=== PATIENT | male | born 1960 | race Caucasian/White ===

== ENCOUNTER 2019-01-29 11:45 | Inpatient (IN) | payer MEDICAID ==
[~2019-01-29] VITALS: Ht 175.3 cm; Wt 106.4 kg
[2019-01-29] MEDS ORDERED: PIPER-TAZO 3.375 GM IV (PMX) 100 ML IVPB STA (11:50)
[2019-01-29] MEDS ORDERED: VANCOMYCIN 1 GM (PMX) 250 ML IVPB STA (11:50)
[2019-01-29] MEDS ORDERED: SODIUM CHLORIDE 0.9% 1L BAG IV* STA (11:50)
[2019-01-29] MEDS ORDERED: ACETAMINOPHEN 325 MG TAB PO STA (11:50)
--- NOTE | 2019-01-29 12:21 | ERD ---
ER Documentation Chief Complaint Chief Complaint LEFT TOE BLACK NECROTIC HPI This is a 58-year-old male who presents for fashion of fever, this is in the setting of increased darkening of his left great toe, which now appears dark and necrotic. Patient states that he knows he has had diabetes in the past, but does not take any medications for this, states that he has not taken good care of himself. He has noted some purulent drainage underneath his great toe. He is brought in by EMS, lives with his brother. There are no alleviating or aggravating factors ROS All systems reviewed and are negative except as per history of present illness. Medications Home Meds No Active Prescriptions or Reported Meds Allergies Allergies: Coded Allergies: No Known Allergy (Unverified , 01/29/19) Physical Exam Vitals Vital Signs Date Temp Pulse Resp B/P (MAP) Pulse Ox O2 O2 Flow FiO2 Time Delivery Rate 01/29/19 100.4 12:49 01/29/19 100.4 113 20 118/68 95 11:48 (85) Physical Exam Const: No acute distress Head: Atraumatic Eyes: Normal Conjunctiva ENT: Normal External Ears, Nose and Mouth. Neck: Full range of motion. No meningismus. Resp: Clear to auscultation bilaterally Cardio: Regular rate and rhythm, no murmurs Abd: Soft, non tender, non distended. Normal bowel sounds Skin: No petechiae or rashes Back: No midline or flank tenderness Ext: No cyanosis, or edema. Over the left foot, there was about a stage II ulcer noted over the plantar aspect of his left great toe, drainage, it does not probe to bone Neur: Awake and alert Psych: Normal Mood and Affect Result Diagram: 01/29/19 1203 01/29/19 1203 Results 24 hrs Laboratory Tests Test 01/29/19 12:03 01/29/19 12:27 01/29/19 13:00 White Blood Count 12.1 10^3/ul Red Blood Count 4.86 10^6/ul Hemoglobin 14.3 g/dl Hematocrit 41.2 % Mean Corpuscular Volume 84.8 fl Mean Corpuscular Hemoglobin 29.4 pg Mean Corpuscular 34.7 g/dl Hemoglobin Concent Red Cell Distribution Width 11.5 % Platelet Count 255 10^3/UL Mean Platelet Volume 10.6 fl Immature Granulocytes % 0.700 % Neutrophils % 70.8 % Lymphocytes % 18.6 % Monocytes % 9.0 % Eosinophils % 0.7 % Basophils % 0.2 % Nucleated Red Blood Cells % 0.0 /100WBC Immature Granulocytes # 0.090 10^3/ul Neutrophils # 8.5 10^3/ul Lymphocytes # 2.2 10^3/ul Monocytes # 1.1 10^3/ul Eosinophils # 0.1 10^3/ul Basophils # 0.0 10^3/ul Nucleated Red Blood Cells # 0.0 10^3/ul Erythrocyte Sedimentation Rate 64.0 mm/Hr Prothrombin Time 12.9 Sec Prothrombin Time Ratio 1.0 INR International 0.96 Normalized Ratio Activated Partial Thromboplast 29.0 Sec Time Sodium Level 133 mmol/L Potassium Level 4.2 mmol/L Chloride Level 96 mmol/L Carbon Dioxide Level 25 mmol/L Anion Gap 12 Blood Urea Nitrogen 20 mg/dl Creatinine 0.88 mg/dl Est Glomerular Filtrat > 60 mL/min Rate mL/min Glucose Level 453 mg/dl Calcium Level 9.6 mg/dl Total Bilirubin 0.4 mg/dl Direct Bilirubin 0.00 mg/dl Indirect Bilirubin 0.4 mg/dl Aspartate Amino 18 IU/L Transf (AST/SGOT) Alanine 16 IU/L Aminotransferase (ALT/SGPT) Alkaline Phosphatase 99 IU/L Troponin I < 0.012 ng/ml C-Reactive Protein 5.7 mg/dl Total Protein 7.9 g/dl Albumin 4.0 g/dl Globulin 3.90 g/dl Albumin/Globulin Ratio 1.02 Bedside Glucose 454 mg/dL Urine Color YELLOW Urine Clarity SLIGHTLY CLOUDY Urine pH 5.0 Urine Specific [place] 1.025 Urine Ketones TRACE mg/dL Urine Nitrite NEGATIVE mg/dL Urine Bilirubin NEGATIVE mg/dL Urine Urobilinogen NEGATIVE mg/dL Urine Leukocyte Esterase NEGATIVE Teresa/ul Urine Microscopic RBC 0 /HPF Urine Microscopic WBC 1 /HPF Urine Hemoglobin NEGATIVE mg/dL Urine Glucose 3+ mg/dL Urine Total Protein NEGATIVE mg/dl Current Medications Medications Dose Sig/Nessa Start Time Status Last (Trade) Ordered Route PRN Stop Time Admin Dose Reason Admin Sodium 2,100 ml BOLUS OVER 2 01/29/19 DC 01/29/19 Chloride HOURS STAT 11:50 12:30 (NS) IV* 01/29/19 11:54 650 mg ONCE STAT 01/29/19 DC 01/29/19 Acetaminophen PO 11:50 12:49 (Tylenol 01/29/19 11:54 Tab) Vancomycin 250 ml @ ONCE STAT 01/29/19 01/29/19 HCl 125 mls/hr IVPB 11:50 12:59 01/29/19 13:49 Piperacillin 100 ml @ ONCE STAT 01/29/19 DC 01/29/19 Sod/ 200 mls/hr IVPB 11:50 12:32 Tazobactam 01/29/19 12:19 Sod Insulin 10 unit ONCE ONCE 01/29/19 Human SC 14:00 Regular 01/29/19 14:01 (Humulin R) Procedures/MDM This is a 58-year-old male who presents for relation of fever, this is setting of an ulcer to his toe. My concern the patient has sepsis, in the setting of cellulitis, with concern for possible osteomyelitis. He will be treated with broad spectrum antibiotics with vancomycin and Zosyn. His labs showed no evidence of DKA, his lactate is pending, he has no evidence of heart failure, thus he was given 30 cc/kg of IV fluids, in addition to subcu insulin at 10 units for hyperglycemia in the 400s. Patient otherwise remained hemodynamic stable. Sepsis Documentation: Patient's infectious symptoms have not stabilized and the patient is at risk of rapid decompensation. The patient will be admitted for careful hydration, antibiotic therapy, and infectious source control. SEVERE SEPSIS CRITERIA: Infectious source: Cellulitis, diabetic ulcer End organ damage indicated by: No end organ damage Time of recognition of sepsis: [Upon arrival]. Time of recognition of severe sepsis: [No severe sepsis at this time]. Time of recognition of septic shock: [No septic shock at this time]. 3 HOUR BUNDLE Blood cultures x 2 before broad-spectrum antibiotics: [Yes] 30 ml/kg NS bolus [Completed] Initial lactate pending Repeat lactate [pending Accepting Care Team: Current data and ongoing care discussed. Primary: Lion Consulting: None Outstanding Data: none CRITICAL CARE Critical care time [35] minutes Emergent fluid management while maintaining close respiratory support. Provision of immediate and broad-spectrum antibiotic therapy. Simultaneous assessment for possible sources in order to direct targeted therapy. Consideration for invasive and chemical support to prevent cardiopulmonary collapse. Critical care time is independent of procedures performed. Departure Diagnosis: Primary Impression: Injury of toe Encounter type: initial encounter Laterality: unspecified laterality Qualified Codes: S99.929A - Unspecified injury of unspecified foot, initial encounter Condition: ALVARO Gonzalez MD Jan 29, 2019 12:21
[2019-01-29] MEDS ORDERED: NACL 0.9% 3 ML SYG IV SCH (14:00)
[2019-01-29] MEDS ORDERED: VANCOMYCIN IV PER PHARMACY XX SCH (14:00)
[2019-01-29] MEDS ORDERED: INSULIN REGULAR, HUMAN 100 UNIT/1 ML 3ML VIAL SC ONE (14:00)
[2019-01-29] MEDS ORDERED: ACETAMINOPHEN 325 MG TAB PO PRN (14:00)
[2019-01-29] MEDS ORDERED: ONDANSETRON 4 MG INJ IV PRN (14:00)
--- NOTE | 2019-01-29 14:04 | HP ---
Date/Time of Note Date/Time of Note DATE: 01/29/19 TIME: 14:04 Assessment/Plan VTE Prophylaxis Pharmacological prophylaxis: other Assessment/Plan Hospital Course HPI Patient is a male with past medical history significant for diabetes of 10 years noncompliant on medications as patient has not ever seen a doctor apparently for many years who presents to [facility] for left toe pain. Patient states approximately 7 days ago he was playing soccer and he injured his toe. Pain and the bleeding got progressively worse and he came to the ER today. Patient states that he has been on and off occasional medications for his diabetes for the past 10 years but has not seen a doctor. Patient currently denies any chest pain, shortness of breath, nausea, vomiting, abdominal pain, headache, bowel or bladder dysfunction. Patient states other than his toe he feels quite normal. Objective Physical exam General: Patient is laying in bed and answers questions appropriately Mentation: Patient is alert and oriented 4, Head: Normocephalic atraumatic Eyes: EOMI, pupils reactive to light Neck: Supple, nontender, midline Respiratory: Clear to auscultation bilaterally Cardiovascular: regular rate, no obvious murmurs Gastrointestinal: non-tender to palpation, bowel sounds heard. Neurological: Moves all extremities spontaneously Skin: Left big toe black, bleeding mildly Assessment and plan Left toe fracture and necrosis -Podiatry consulted -MRI pending -X-ray noted Sepsis secondary to above left toe fracture necrosis -Broad-spectrum IV antibiotic -Infectious disease consulted -Podiatry consulted -IV fluids -Blood cultures taken Uncontrolled diabetes mellitus -Not in DKA -We will start patient on a regimen of long-acting and short-acting insulin with sliding scale as well -We will also get A1c -Fluids Degenerative spine disease -Chronic, monitor Disposition -Podiatry and infectious disease consultation pending, MRI pending. Result Diagram: 01/29/19 1203 01/29/19 1203 Results 24hrs Laboratory Tests Test 01/29/19 12:03 01/29/19 12:27 01/29/19 13:00 White Blood Count 12.1 H Red Blood Count 4.86 Hemoglobin 14.3 Hematocrit 41.2 L Mean Corpuscular Volume 84.8 Mean Corpuscular Hemoglobin 29.4 Mean Corpuscular 34.7 Hemoglobin Concent Red Cell Distribution Width 11.5 Platelet Count 255 Mean Platelet Volume 10.6 H Immature Granulocytes % 0.700 H Neutrophils % 70.8 Lymphocytes % 18.6 Monocytes % 9.0 Eosinophils % 0.7 Basophils % 0.2 Nucleated Red Blood Cells % 0.0 Immature Granulocytes # 0.090 H Neutrophils # 8.5 H Lymphocytes # 2.2 Monocytes # 1.1 H Eosinophils # 0.1 Basophils # 0.0 Nucleated Red Blood Cells # 0.0 Erythrocyte Sedimentation Rate 64.0 H Prothrombin Time 12.9 Prothrombin Time Ratio 1.0 INR International 0.96 Normalized Ratio Activated Partial Thromboplast 29.0 Time Sodium Level 133 L Potassium Level 4.2 Chloride Level 96 L Carbon Dioxide Level 25 Anion Gap 12 Blood Urea Nitrogen 20 Creatinine 0.88 Est Glomerular Filtrat > 60 Rate mL/min Glucose Level 453 *H Calcium Level 9.6 Total Bilirubin 0.4 Direct Bilirubin 0.00 Indirect Bilirubin 0.4 Aspartate Amino 18 Transf (AST/SGOT) Alanine 16 Aminotransferase (ALT/SGPT) Alkaline Phosphatase 99 Troponin I < 0.012 C-Reactive Protein 5.7 H Total Protein 7.9 Albumin 4.0 Globulin 3.90 H Albumin/Globulin Ratio 1.02 Bedside Glucose 454 *H Urine Color YELLOW Urine Clarity SLIGHTLY CLOUDY A Urine pH 5.0 Urine Specific [place] 1.025 Urine Ketones TRACE A Urine Nitrite NEGATIVE Urine Bilirubin NEGATIVE Urine Urobilinogen NEGATIVE Urine Leukocyte Esterase NEGATIVE Urine Microscopic RBC 0 Urine Microscopic WBC 1 Urine Hemoglobin NEGATIVE Urine Glucose 3+ H Urine Total Protein NEGATIVE HPI/ROS Admit Date/Time Admit Date/Time PMH/Family/Social Past Medical History Medications Current Medications IV Flush (NS 3 ml) 3 ml PER PROTOCOL IV ; Start 01/29/19 at 14:00 Ondansetron HCl (Zofran Inj) 4 mg Q6H PRN IV NAUSEA/VOMITING; Start 01/29/19 at 14:00 Acetaminophen (Tylenol Tab) 650 mg Q6H PRN PO .PAIN 1-3 OR TEMP; Start 01/29/19 at 14:00 Oxycodone/ Acetaminophen (Percocet (5/ 325)) 1 tab Q6H PRN PO .PAINS 4-6; Start 01/29/19 at 14:00 Morphine Sulfate (morphine) 2 mg Q4H PRN IV .PAIN 7-10; Start 01/29/19 at 14:00 Vancomycin HCl (Vanco Iv Per Pharmacy) VANCOMYCIN PER PHARMACY PER PROTOCOL XX ; Start 01/29/19 at 14:00; Status UNV Piperacillin Sod/ Tazobactam Sod 100 ml @ 200 mls/hr Q6 IVPB ; Start 01/29/19 at 18:00; Status UNV Sodium Chloride 1,000 ml @ 50 mls/hr Q20H IV ; Start 01/29/19 at 14:00; Status UNV Miscellaneous Information (* Miscellaneous Pharmacy Order) Discontinue current oral sulfonylur... ONCE ONCE XX ; Start 01/29/19 at 14:00; Stop 01/29/19 at 14:01; Status UNV Diagnostic Test (Pha) (Accu-Chek) 1 ea XX ; Start 01/30/19 at 02:00; Status UNV Insulin Glargine (Lantus) 25 units DAILY@2000 SC ; Start 01/29/19 at 20:00; Status UNV Insulin Aspart (Novolog Insulin Pen) 8 unit WITH MEALS SC ; Start 01/29/19 at 18:00; Status UNV Miscellaneous Information (* Miscellaneous Pharmacy Order) HYPOGLYCEMIA PROTOCOL w... ONCE ONCE XX ; Start 01/29/19 at 14:00; Stop 01/29/19 at 14:01; Status UNV Insulin Aspart (Novolog Insulin Pen) NOVOLOG *MILD* ALGORITHM WITH MEALS BEDTIME SC ; Start 01/29/19 at 18:00; Status UNV Miscellaneous Information (* Miscellaneous Pharmacy Order) Discontinue all previ... ONCE ONCE XX ; Start 01/29/19 at 14:00; Stop 01/29/19 at 14:01; Status UNV Coded Allergies: No Known Allergy (Unverified , 01/29/19) Exam/Review of Systems Vital Signs Vitals Vital Signs Date Temp Pulse Resp B/P (MAP) Pulse Ox O2 O2 Flow FiO2 Time Delivery Rate 01/29/19 100.4 12:49 01/29/19 113 20 118/68 95 11:48 (85) ALVARO MCCORD Jan 29, 2019 14:04
--- NOTE | 2019-01-29 14:20 | CONS ---
Assessment/Plan Assessment/Plan Assessment/Plan (Daily) Left hallux gangrene Left hallux minimally displaced open fracture PAD DM2 with peripheral neuropathy Uncontrolled DM2 Plan MRI and X-rays reviewed and noted comminuted distal phalanx fracture of left hallux. There is gangrenous changes noted to the skin and will allow skin to demarcate. Vascular studies ordered and recommend a vascular evaluation. Recommend daily dressing changes with dakins irrigation and betadine with dry sterile dressings. Ordered wound culture of left hallux ulcer site. Recommend IV abx per ID recommendations. Consultation Date/Type/Reason Admit Date/Time Date/Time of Note DATE: 01/29/19 TIME: 14:20 Hx of Present Illness 58 y/o male with past medical history significant for diabetes of 10 years noncompliant on medications as patient has not ever seen a doctor apparently for many years who presents to [facility] for left toe pain. Pat los states approximately 7 days ago he was playing soccer and he injured his toe. Pain and the bleeding got progressively worse and he came to the ER today. Patient states that he has been on and off occasional medications for his diabetes for the past 10 years but has not seen a doctor. Patient currently denies any chest pain, shortness of breath, nausea, vomiting, abdominal pain, headache, bowel or bladder dysfunction. Patient states other than his toe he feels quite normal. ROS negative except for HPI Past Medical History Degenerative spine disease Medical History: diabetes Home Meds No Active Prescriptions or Reported Meds Medications Current Medications IV Flush (NS 3 ml) 3 ml PER PROTOCOL IV ; Start 01/29/19 at 14:00 Ondansetron HCl (Zofran Inj) 4 mg Q6H PRN IV NAUSEA/VOMITING; Start 01/29/19 at 14:00 Acetaminophen (Tylenol Tab) 650 mg Q6H PRN PO .PAIN 1-3 OR TEMP; Start 01/29/19 at 14:00 Oxycodone/ Acetaminophen (Percocet (5/ 325)) 1 tab Q6H PRN PO .PAINS 4-6; Start 01/29/19 at 14:00 Morphine Sulfate (morphine) 2 mg Q4H PRN IV .PAIN 7-10; Start 01/29/19 at 14:00 Vancomycin HCl (Vanco Iv Per Pharmacy) VANCOMYCIN PER PHARMACY PER PROTOCOL XX ; Start 01/29/19 at 14:00; Status UNV Piperacillin Sod/ Tazobactam Sod 100 ml @ 200 mls/hr Q6 IVPB ; Start 01/29/19 at 18:00; Status UNV Sodium Chloride 1,000 ml @ 50 mls/hr Q20H IV ; Start 01/29/19 at 14:00; Status UNV Miscellaneous Information (* Miscellaneous Pharmacy Order) Discontinue current oral sulfonylur... ONCE ONCE XX ; Start 01/29/19 at 14:00; Stop 01/29/19 at 14:01; Status UNV Diagnostic Test (Pha) (Accu-Chek) 1 ea XX ; Start 01/30/19 at 02:00; Status UNV Insulin Glargine (Lantus) 25 units DAILY@2000 SC ; Start 01/29/19 at 20:00; Status UNV Insulin Aspart (Novolog Insulin Pen) 8 unit WITH MEALS SC ; Start 01/29/19 at 18:00; Status UNV Miscellaneous Information (* Miscellaneous Pharmacy Order) HYPOGLYCEMIA PROTOCOL w... ONCE ONCE XX ; Start 01/29/19 at 14:00; Stop 01/29/19 at 14:01; Status UNV Insulin Aspart (Novolog Insulin Pen) NOVOLOG *MILD* ALGORITHM WITH MEALS BEDTIME SC ; Start 01/29/19 at 18:00; Status UNV Miscellaneous Information (* Miscellaneous Pharmacy Order) Discontinue all previ... ONCE ONCE XX ; Start 01/29/19 at 14:00; Stop 01/29/19 at 14:01; Status UNV Allergies: Coded Allergies: No Known Allergy (Unverified , 01/29/19) Past Surgical History denies Social History Smoking Status: Never smoker Exam/Review of Systems Exam Vitals Vital Signs Date Temp Pulse Resp B/P (MAP) Pulse Ox O2 O2 Flow FiO2 Time Delivery Rate 01/29/19 100.4 12:49 01/29/19 113 20 118/68 95 11:48 (85) Exam Weakly palpable pedal pulses Absent protective sensations. Gangrene noted to the left hallux There is mild purulent drainage noted with the left hallux ulceration site measuring 0.3 x 0.4 x 0.3cm, ulcer probes to bone Muscle strength 5/5 in all compartments of the foot Mild pain with palpation to the left hallux. Foot X-ray IMPRESSION: 1. Comminuted nondisplaced fracture involving the distal aspect of the distal phalanx of the left great toe without significant displacement. 2. Deformity to the distal left second metatarsal neck and head which may be a sequelae of old healed trauma. 3. Mild calcaneal spurring. 4. Soft tissue swelling involving the distal left great toe. Vascular calcification is noted. Foot MRI IMPRESSION: 1. Slightly comminuted essentially nondisplaced first distal tuft fracture with adjacent soft tissue swelling and possible skin defect. Questionable subtle ezekiel ical irregularity along the fracture margins may be related to the fracture though if there is a skin defect clinically early osteomyelitis is not entirely excluded. Continued clinical follow-up is advised and consider short-term follow-up MRI for further evaluation. 2. 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 3. No discrete drainable fluid collection. Results Result Diagram: 01/29/19 1203 01/29/19 1203 Results 24hrs Laboratory Tests Test 01/29/19 12:03 01/29/19 12:27 01/29/19 13:00 White Blood Count 12.1 H Red Blood Count 4.86 Hemoglobin 14.3 Hematocrit 41.2 L Mean Corpuscular Volume 84.8 Mean Corpuscular Hemoglobin 29.4 Mean Corpuscular 34.7 Hemoglobin Concent Red Cell Distribution Width 11.5 Platelet Count 255 Mean Platelet Volume 10.6 H Immature Granulocytes % 0.700 H Neutrophils % 70.8 Lymphocytes % 18.6 Monocytes % 9.0 Eosinophils % 0.7 Basophils % 0.2 Nucleated Red Blood Cells % 0.0 Immature Granulocytes # 0.090 H Neutrophils # 8.5 H Lymphocytes # 2.2 Monocytes # 1.1 H Eosinophils # 0.1 Basophils # 0.0 Nucleated Red Blood Cells # 0.0 Erythrocyte Sedimentation Rate 64.0 H Prothrombin Time 12.9 Prothrombin Time Ratio 1.0 INR International 0.96 Normalized Ratio Activated Partial Thromboplast 29.0 Time Sodium Level 133 L Potassium Level 4.2 Chloride Level 96 L Carbon Dioxide Level 25 Anion Gap 12 Blood Urea Nitrogen 20 Creatinine 0.88 Est Glomerular Filtrat > 60 Rate mL/min Glucose Level 453 *H Calcium Level 9.6 Total Bilirubin 0.4 Direct Bilirubin 0.00 Indirect Bilirubin 0.4 Aspartate Amino 18 Transf (AST/SGOT) Alanine 16 Aminotransferase (ALT/SGPT) Alkaline Phosphatase 99 Troponin I < 0.012 C-Reactive Protein 5.7 H Total Protein 7.9 Albumin 4.0 Globulin 3.90 H Albumin/Globulin Ratio 1.02 Bedside Glucose 454 *H Urine Color YELLOW Urine Clarity SLIGHTLY CLOUDY A Urine pH 5.0 Urine Specific [place] 1.025 Urine Ketones TRACE A Urine Nitrite NEGATIVE Urine Bilirubin NEGATIVE Urine Urobilinogen NEGATIVE Urine Leukocyte Esterase NEGATIVE Urine Microscopic RBC 0 Urine Microscopic WBC 1 Urine Hemoglobin NEGATIVE Urine Glucose 3+ H Urine Total Protein NEGATIVE Medications Medication Current Medications IV Flush (NS 3 ml) 3 ml PER PROTOCOL IV ; Start 01/29/19 at 14:00 Ondansetron HCl (Zofran Inj) 4 mg Q6H PRN IV NAUSEA/VOMITING; Start 01/29/19 at 14:00 Acetaminophen (Tylenol Tab) 650 mg Q6H PRN PO .PAIN 1-3 OR TEMP; Start 01/29/19 at 14:00 Oxycodone/ Acetaminophen (Percocet (5/ 325)) 1 tab Q6H PRN PO .PAINS 4-6; Start 01/29/19 at 14:00 Morphine Sulfate (morphine) 2 mg Q4H PRN IV .PAIN 7-10; Start 01/29/19 at 14:00 Vancomycin HCl (Vanco Iv Per Pharmacy) VANCOMYCIN PER PHARMACY PER PROTOCOL XX ; Start 01/29/19 at 14:00; Status UNV Piperacillin Sod/ Tazobactam Sod 100 ml @ 200 mls/hr Q6 IVPB ; Start 01/29/19 at 18:00; Status UNV Sodium Chloride 1,000 ml @ 50 mls/hr Q20H IV ; Start 01/29/19 at 14:00; Status UNV Miscellaneous Information (* Miscellaneous Pharmacy Order) Discontinue current oral sulfonylur... ONCE ONCE XX ; Start 01/29/19 at 14:00; Stop 01/29/19 at 14:01; Status UNV Diagnostic Test (Pha) (Accu-Chek) 1 XX ; Start 01/30/19 at 02:00; Status UNV Insulin Glargine (Lantus) 25 units DAILY@2000 SC ; Start 01/29/19 at 20:00; Status UNV Insulin Aspart (Novolog Insulin Pen) 8 unit WITH MEALS SC ; Start 01/29/19 at 18:00; Status UNV Miscellaneous Information (* Miscellaneous Pharmacy Order) HYPOGLYCEMIA PROTOCOL w... ONCE ONCE XX ; Start 01/29/19 at 14:00; Stop 01/29/19 at 14:01; Status UNV Insulin Aspart (Novolog Insulin Pen) NOVOLOG *MILD* ALGORITHM WITH MEALS BEDTIM E SC ; Start 01/29/19 at 18:00; Status UNV Miscellaneous Information (* Miscellaneous Pharmacy Order) Discontinue all previ... ONCE ONCE XX ; Start 01/29/19 at 14:00; Stop 01/29/19 at 14:01; Status UNV BRENTON OBANDO DPM Jan 29, 2019 14:20
[2019-01-29] MEDS ORDERED: GLUCOSE GEL 15 GRAM TUBE PO PRN ×2 (15:00)
[2019-01-29] MEDS ORDERED: VANCOMYCIN 1 GM in 250 ML IVPB ONE (15:00)
[2019-01-29] MEDS ORDERED: GLUCAGON 1 MG INJ IM PRN (15:00)
[2019-01-29] MEDS ORDERED: GLUCOSE GEL 15 GRAM TUBE BUCCAL PRN (15:00)
[2019-01-29] MEDS ORDERED: DEXTROSE 50% 50 ML SYRINGE IV PRN ×2 (15:00)
[2019-01-29 16:32] VITALS: BP 116/79; PULSE 92; RESP 19
[2019-01-29 16:33] VITALS: Ht 175.3 cm; Wt 106.4 kg
--- NOTE | 2019-01-29 17:49 | CONS ---
DATE OF ADMISSION: 01/29/2019 DATE OF CONSULTATION: 01/29/2019 REASON FOR CONSULTATION: Antibiotic management. HISTORY OF PRESENT ILLNESS: Uli Soliz is a 58-year-old male who comes to the emergen cy room with left toe necrosis. The patient comes in with fever. He has darkening of his left great toe which appears black and necrotic. He has diabetes and has known it in the past but does not marlee e any medications for it. He states he is not taking good care of himself. He noted some purulent d rainage underneath the great toe. PAST MEDICAL HISTORY: Operations: None. FAMILY HISTORY: Noncontributory. SOCIAL HISTORY: He does not smoke, drink or abuse drugs. ALLERGIES: NONE TO PENICILLIN, SULFA OR FOODS. MEDICATIONS: Per chart. REVIEW OF SYSTEMS: As per HPI. PHYSICAL EXAMINATION: GENERAL: The patient is alert, responsive, in no acute distress. VITAL SIGNS: T-max of 100.4. SKIN: Without generalized rash. HEENT: Within normal limits. NECK: Supple. LYMPH NODES: None palpable. CHEST: Decreased breath sounds at the bases. HEART: Without murmur or gallop. ABDOMEN: Soft, nontender, without organosplenomegaly or masses. EXTREMITIES: There is a stage II ulcer over the left foot noted on the plantar aspect of the left gr eat toe. There is drainage but it does not probe to bone. RECTAL AND GENITAL: Exam is deferred. NEUROLOGIC EVALUATION: No focal neurological abnormality. He has decreased sensation in the distal extremities. ANCILLARY LABORATORY DATA: White count of 12.1, H and H of 14.3/41.2, platelet count 255,000. BUN a nd creatinine 20/0.88, random glucose 453. HOSPITAL COURSE: The patient was started on vancomycin and Zosyn for cellulitis, diabetic foot ulcer . Blood cultures x2 were done. Sed rate was 64. BUN and creatinine were 20/0.88 with a glucose of 453 and 454. X-ray of the foot shows a comminuted, nondisplaced fracture involving the distal phalan x of the left great toe without significant displacement; deformity to the distal left 2nd metatarsal neck and head which may be a sequela of old healed trauma; mild calcaneus spurring; soft tissue swel ling involving the distal left great toe. Vascular calcification is noted. IMPRESSION AND PLAN: The patient comes in with a black necrotic toe. He should be seen by Podiatry. An MRI is pending to rule out osteomyelitis. We will continue him on broad-spectrum antibiotic the rapy. I will dictate my findings to the hospitalist. Dictated By: ADRIAN XIE MD, JD/LIBERTY Conf#: [id number] DID#: [id number] CC: ALVARO MCCORD MD;*EndCC*
[2019-01-29] MEDS: INSULIN ASPART [NOVOLOG] 3 ML PEN SC SCH ×3 (18:00→20:18)
[2019-01-29] MEDS: PIPER-TAZO 3.375 GM IV (PMX) 100 ML IVPB SCH ×2 (18:04→23:31)
[2019-01-29] MEDS: SOD CHLORIDE 0.9% 1,000 ML IV SCH (18:05)
[2019-01-29 20:00] VITALS: BP 137/77; PULSE 93; RESP 18
[2019-01-29] MEDS ORDERED: INSULIN GLARGINE [LANTus] (100 UNITS/ML) SYG SC SCH (20:00)
[2019-01-30] MEDS: ACCU-CHEK XX SCH (01:36)
[2019-01-30 02:00] VITALS: BP 131/76; PULSE 80; RESP 18
[2019-01-30] MEDS: PIPER-TAZO 3.375 GM IV (PMX) 100 ML IVPB SCH ×3 (05:20→18:32)
[2019-01-30 08:30] VITALS: BP 113/57; PULSE 84; RESP 18
[2019-01-30] MEDS: INSULIN ASPART [NOVOLOG] 3 ML PEN SC SCH ×7 (08:50→20:46)
[2019-01-30] MEDS: OXYCODONE/ACETAMINOPHEN (5/325) TAB PO PRN ×2 (08:57→20:20)
[2019-01-30] MEDS: SOD CHLORIDE 0.9% 1,000 ML IV SCH ×2 (10:00→22:59)
[2019-01-30] MEDS ORDERED: VANCOMYCIN HCL 1.5 GM in SOD CHLORIDE 0.9% 250 ML IVPB SCH (12:00)
--- NOTE | 2019-01-30 14:17 | PN ---
Date/Time of Note Date/Time of Note DATE: 01/30/19 TIME: 14:16 Objective Vitals Vital Signs Date Temp Pulse Resp B/P (MAP) Pulse Ox O2 O2 Flow FiO2 Time Delivery Rate 01/30/19 98.6 84 18 113/57 100 Room Air 08:30 (75) Intake and Output 01/29/19 01/29/19 01/30/19 1515:00 23:00 07:00 IntakeIntake Total 895 ml 1200 ml OutputOutput Total 1000 ml 800 ml BalanceBalance -105 ml 400 ml Results Result Diagram: 01/30/19 0555 01/30/19 0555 Medications Medications Current Medications IV Flush (NS 3 ml) 3 ml PER PROTOCOL IV ; Start 01/29/19 at 14:00 Ondansetron HCl (Zofran Inj) 4 mg Q6H PRN IV NAUSEA/VOMITING; Start 01/29/19 at 14:00 Acetaminophen (Tylenol Tab) 650 mg Q6H PRN PO .PAIN 1-3 OR TEMP; Start 01/29/19 at 14:00 Oxycodone/ Acetaminophen (Percocet (5/ 325)) 1 tab Q6H PRN PO .PAINS 4-6 Last administered on 01/30/19at 08:57; Admin Dose 1 TAB; Start 01/29/19 at 14:00 Morphine Sulfate (morphine) 2 mg Q4H PRN IV .PAIN 7-10; Start 01/29/19 at 14:00 Vancomycin HCl (Vanco Iv Per Pharmacy) VANCOMYCIN PER PHARMACY PER PROTOCOL XX ; Start 01/29/19 at 14:00 Piperacillin Sod/ Tazobactam Sod 100 ml @ 200 mls/hr Q6 IVPB Last administered on 01/30/19at 13:23; Admin Dose 200 MLS/HR; Start 01/29/19 at 18:00 Sodium Chloride 1,000 ml @ 50 mls/hr Q20H IV Last administered on 01/29/19at 18:05; Admin Dose 50 MLS/HR; Start 01/29/19 at 14:00 Diagnostic Test (Pha) (Accu-Chek) 1 ea 02 XX ; Start 01/30/19 at 02:00 Insulin Aspart (Novolog Insulin Pen) NOVOLOG *MILD* ALGORITHM WITH MEALS BEDTIME SC Last administered on 01/30/19at 12:34; Admin Dose 4 UNIT; Start 01/29/19 at 18:00 Miscellaneous Information 1 ea NOTE XX ; Start 01/29/19 at 15:00 Glucose (Glutose) 15 gm Q15M PRN PO DECREASED GLUCOSE; Start 01/29/19 at 15:00 Glucose (Glutose) 22.5 gm Q15M PRN PO DECREASED GLUCOSE; Start 01/29/19 at 15:00 Dextrose (D50w Syringe) 25 ml Q15M PRN IV DECREASED GLUCOSE; Start 01/29/19 at 15:00 Dextrose (D50w Syringe) 50 ml Q15M PRN IV DECREASED GLUCOSE; Start 01/29/19 at 15:00 Glucagon (Glucagen) 1 mg Q15M PRN IM DECREASED GLUCOSE; Start 01/29/19 at 15:00 Glucose (Glutose) 15 gm Q15M PRN BUCCAL DECREASED GLUCOSE; Start 01/29/19 at 15:00 Miscellaneous Information (*Rx Drug Level Order Reminder*) VANCO TROUGH ON 01/18... 1200 ONCE XX ; Start 01/31/19 at 12:00; Stop 01/31/19 at 12:01 Vancomycin HCl 1.5 gm/Sodium Chloride 250 ml @ 83.333 mls/ hr Q12H IVPB ; Start 01/30/19 at 13:00 Insulin Aspart (Novolog Insulin Pen) 11 unit WITH MEALS SC ; Start 01/30/19 at 17:35 Insulin Glargine (Lantus) 30 units DAILY@2000 SC ; Start 01/30/19 at 20:00 VTE Prophylaxis Risk score (from Nsg)>0 risk: 3 SCD applied (from Ns): Yes Lines/Catheters IV Catheter Type: Barnett in Place: No Assessment/Plan Hospital Course Subjective Patient doing well, no acute complaints Objective Physical exam General: Patient is laying in bed and answers questions appropriately Mentation: Patient is alert and oriented 4, Head: Normocephalic atraumatic Eyes: EOMI, pupils reactive to light Neck: Supple, nontender, midline Respiratory: Clear to auscultation bilaterally Cardiovascular: regular rate, no obvious murmurs Gastrointestinal: non-tender to palpation, bowel sounds heard. Neurological: Moves all extremities spontaneously Skin: Left big toe black, bleeding mildly Assessment and plan Left toe fracture and necrosis, cannot rule out osteomyelitis -Podiatry consulted -MRI notes multiple issues, cannot rule out osteomyelitis -X-ray noted Sepsis secondary to above left toe fracture necrosis -Broad-spectrum IV antibiotic -Infectious disease consulted -Podiatry consulted -IV fluids -Blood cultures taken Uncontrolled diabetes mellitus -We will have to adjust Lantus and mealtime and sliding scale, educator senior clinical will also need to be called as patient was never really on medications, patient will likely lead with a combination of oral and insulins Degenerative spine disease -Chronic, monitor Disposition -Podiatry and infectious disease consultation pending, ALVARO MCCORD Jan 30, 2019 14:17
[2019-01-30 14:31] VITALS: BP 116/60; PULSE 80; RESP 18
[2019-01-30] MEDS: VANCOMYCIN HCL 1.5 GM in SOD CHLORIDE 0.9% 250 ML IVPB SCH (14:57)
--- NOTE | 2019-01-30 16:31 | CONS ---
Assessment/Plan Assessment/Plan Hospital Course (Demo Recall) ID PROGRESS NOTE CURRENT ABX: DAY #1.5 => Vanco IV + Zosyn 24H INTERVAL SUMMARY * Improved, TNS out of ICU, afebrile, VSS, foot pain ongoing DIAGNOSTIC IMAGING * 01/29/19 MRI FOOT: * 1. Slightly comminuted essentially nondisplaced first distal tuft fracture with adjacent soft tissue swelling and possible skin defect. Questionable subtle cortical irregularity along the fracture margins may be related to the fracture though if there is a skin defect clinically early osteomyelitis is not entirely excluded. Continued clinical follow-up is advised and consider short-term follow-up MRI for further evaluation. * 2. 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 * 3. No discrete drainable fluid collection. MICRO/OTHER * 01/29/19 (-)MRSA Nares * 01/29/19 Urine Cx (-) * 01/29/19 BCx (-) PHYSICAL EXAMINATION: GENERAL: VSS, NAD HEENT: AT, NC, anicteric, NECK: Supple, CHEST: Equal chest rise bilaterally, without dyspnea on observation HEART: Pulse RRR ABDOMEN: Soft / NT EXTREMITIES: Warm, dry SKIN: No rash, no diaphoresis ID ASSESSMENT 58 yo M admit with: 1. Left toe fracture and necrosis, cannot rule out osteomyelitis * -MRI notes multiple issues, cannot rule out osteomyelitis 2. Sepsis secondary to above left toe fracture necrosis 3. Uncontrolled diabetes mellitus 4. Degenerative spine disease ABX ALLERGIES: KNDA INVASIVES: PI CURRENT ABX: DAY #1.5 => Vanco IV + Zosyn ID RECOMMENDATIONS/PLAN: 1. Continue current ABC 2. Will follow up tomorrow . Consultation Date/Type/Reason Admit Date/Time Jan 29, 2019 at 14:15 Initial Consult Date Date/Time of Note DATE: 01/30/19 TIME: 16:29 Exam/Review of Systems Exam Vitals Vital Signs Date Temp Pulse Resp B/P (MAP) Pulse Ox O2 O2 Flow FiO2 Time Delivery Rate 01/30/19 98.2 80 18 116/60 100 Room Air 14:31 (78) Intake and Output 01/29/19 01/29/19 01/30/19 1515:00 23:00 07:00 IntakeIntake Total 895 ml 1200 ml OutputOutput Total 1000 ml 800 ml BalanceBalance -105 ml 400 ml Results Result Diagram: 01/30/19 0555 01/30/19 0555 Results 24hrs Laboratory Tests Test 01/29/19 17:04 01/29/19 20:13 01/30/19 01:35 01/30/19 05:55 Bedside Glucose 280 H 224 H 222 H White Blood Count 8.3 # Red Blood Count 4.50 L Hemoglobin 13.2 L Hematocrit 38.7 L Mean Corpuscular 86.0 Volume Mean Corpuscular 29.3 Hemoglobin Mean Corpuscular 34.1 Hemoglobin Concent Red Cell 11.7 Distribution Width Platelet Count 225 Mean Platelet Volume 10.3 Immature 0.800 H Granulocytes % Neutrophils % 66.1 Lymphocytes % 20.3 Monocytes % 10.0 Eosinophils % 2.6 Basophils % 0.2 Nucleated Red Blood 0.0 Cells % Immature 0.070 H Granulocytes # Neutrophils # 5.5 Lymphocytes # 1.7 Monocytes # 0.8 Eosinophils # 0.2 Basophils # 0.0 Nucleated Red Blood 0.0 Cells # Sodium Level 138 Potassium Level 4.0 Chloride Level 101 Carbon Dioxide Level 28 Anion Gap 9 Blood Urea Nitrogen 14 Creatinine 0.52 L Est Glomerular > 60 Filtrat Rate mL/min Glucose Level 235 #H Hemoglobin A1c 11.9 H Calcium Level 8.8 Magnesium Level 1.9 Total Bilirubin 0.3 Direct Bilirubin 0.00 Indirect Bilirubin 0.3 Aspartate Amino 17 Transf (AST/SGOT) Alanine 24 Aminotransferase (AL T/SGPT) Alkaline Phosphatase 74 Total Protein 6.8 # Albumin 3.4 Globulin 3.40 H Albumin/Globulin 1.00 Ratio Triglycerides Level 131 Cholesterol Level 174 LDL Cholesterol, 121 Calculated HDL Cholesterol 27 L Cholesterol/HDL 6.4 Ratio Thyroid Stimulating 1.210 Hormone (TSH) Test 01/30/19 08:16 01/30/19 12:14 Bedside Glucose 281 H 266 H Medications Medication Current Medications IV Flush (NS 3 ml) 3 ml PER PROTOCOL IV ; Start 01/29/19 at 14:00 Ondansetron HCl (Zofran Inj) 4 mg Q6H PRN IV NAUSEA/VOMITING; Start 01/29/19 at 14:00 Acetaminophen (Tylenol Tab) 650 mg Q6H PRN PO .PAIN 1-3 OR TEMP; Start 01/29/19 at 14:00 Oxycodone/ Acetaminophen (Percocet (5/ 325)) 1 tab Q6H PRN PO .PAINS 4-6 Last administered on 01/30/19at 08:57; Admin Dose 1 TAB; Start 01/29/19 at 14:00 Morphine Sulfate (morphine) 2 mg Q4H PRN IV .PAIN 7-10; Start 01/29/19 at 14:00 Vancomycin HCl (Vanco Iv Per Pharmacy) VANCOMYCIN PER PHARMACY PER PROTOCOL XX ; Start 01/29/19 at 14:00 Piperacillin Sod/ Tazobactam Sod 100 ml @ 200 mls/hr Q6 IVPB Last administered on 01/30/19at 13:23; Admin Dose 200 MLS/HR; Start 01/29/19 at 18:00 Sodium Chloride 1,000 ml @ 50 mls/hr Q20H IV Last administered on 01/29/19at 18:05; Admin Dose 50 MLS/HR; Start 01/29/19 at 14:00 Diagnostic Test (Pha) (Accu-Chek) 1 ea 02 XX ; Start 01/30/19 at 02:00 Insulin Aspart (Novolog Insulin Pen) NOVOLOG *MILD* ALGORITHM WITH MEALS BEDTIME SC Last administered on 01/30/19at 12:34; Admin Dose 4 UNIT; Start 01/29/19 at 18:00 Miscellaneous Information 1 ea NOTE XX ; Start 01/29/19 at 15:00 Glucose (Glutose) 15 gm Q15M PRN PO DECREASED GLUCOSE; Start 01/29/19 at 15:00 Glucose (Glutose) 22.5 gm Q15M PRN PO DECREASED GLUCOSE; Start 01/29/19 at 15:00 Dextrose (D50w Syringe) 25 ml Q15M PRN IV DECREASED GLUCOSE; Start 01/29/19 at 15:00 Dextrose (D50w Syringe) 50 ml Q15M PRN IV DECREASED GLUCOSE; Start 01/29/19 at 15:00 Glucagon (Glucagen) 1 mg Q15M PRN IM DECREASED GLUCOSE; Start 01/29/19 at 15:00 Glucose (Glutose) 15 gm Q15M PRN BUCCAL DECREASED GLUCOSE; Start 01/29/19 at 15:00 Miscellaneous Information (*Rx Drug Level Order Reminder*) VANCO TROUGH ON 01/18... 1200 ONCE XX ; Start 01/31/19 at 12:00; Stop 01/31/19 at 12:01 Vancomycin HCl 1.5 gm/Sodium Chloride 250 ml @ 83.333 mls/ hr Q12H IVPB Last administered on 01/30/19at 14:57; Admin Dose 83.333 MLS/HR; Start 01/30/19 at 13:00 Insulin Aspart (Novolog Insulin Pen) 11 unit WITH MEALS SC ; Start 01/30/19 at 17:35 Insulin Glargine (Lantus) 30 units DAILY@2000 SC ; Start 01/30/19 at 20:00 RUIZ WALLACE NP Jan 30, 2019 16:30
[2019-01-30 20:00] VITALS: BP 136/63; PULSE 93; RESP 18
[2019-01-30] MEDS ORDERED: INSULIN GLARGINE [LANTus] (100 UNITS/ML) SYG SC SCH (20:00)
[2019-01-31] MEDS: PIPER-TAZO 3.375 GM IV (PMX) 100 ML IVPB SCH ×4 (00:41→17:18)
[2019-01-31] MEDS: VANCOMYCIN HCL 1.5 GM in SOD CHLORIDE 0.9% 250 ML IVPB SCH ×2 (01:10→13:36)
[2019-01-31 02:00] VITALS: BP 119/68; PULSE 78; RESP 18
[2019-01-31] MEDS: OXYCODONE/ACETAMINOPHEN (5/325) TAB PO PRN ×4 (02:05→18:44)
[2019-01-31] MEDS: ACCU-CHEK XX SCH (02:12)
[2019-01-31 08:12] VITALS: BP 131/70; PULSE 84; RESP 17
[2019-01-31] MEDS: INSULIN ASPART [NOVOLOG] 3 ML PEN SC SCH ×7 (08:20→20:50)
[2019-01-31] MEDS: DAKINS 0.0125%(1/40) 473 ML SOLUTION TP SCH (09:00)
[2019-01-31 13:57] VITALS: BP 98/52; PULSE 82; RESP 17
--- NOTE | 2019-01-31 15:06 | PN ---
Date/Time of Note Date/Time of Note DATE: 01/31/19 TIME: 15:05 Objective Vitals Vital Signs Date Temp Pulse Resp B/P (MAP) Pulse Ox O2 O2 Flow FiO2 Time Delivery Rate 01/31/19 99.5 82 17 98/52 (67) 94 Room Air 13:57 Intake and Output 01/30/19 01/30/19 01/31/19 1515:00 23:00 07:00 IntakeIntake Total 1120 ml 750 ml 950 ml OutputOutput Total 2000 ml 400 ml 1200 ml BalanceBalance -880 ml 350 ml -250 ml Results Result Diagram: 01/31/19 0550 01/31/19 1204 Medications Medications Current Medications IV Flush (NS 3 ml) 3 ml PER PROTOCOL IV ; Start 01/29/19 at 14:00 Ondansetron HCl (Zofran Inj) 4 mg Q6H PRN IV NAUSEA/VOMITING; Start 01/29/19 at 14:00 Acetaminophen (Tylenol Tab) 650 mg Q6H PRN PO .PAIN 1-3 OR TEMP; Start 01/29/19 at 14:00 Oxycodone/ Acetaminophen (Percocet (5/ 325)) 1 tab Q6H PRN PO .PAINS 4-6 Last administered on 01/31/19at 11:58; Admin Dose 1 TAB; Start 01/29/19 at 14:00 Morphine Sulfate (morphine) 2 mg Q4H PRN IV .PAIN 7-10; Start 01/29/19 at 14:00 Vancomycin HCl (Vanco Iv Per Pharmacy) VANCOMYCIN PER PHARMACY PER PROTOCOL XX ; Start 01/29/19 at 14:00 Piperacillin Sod/ Tazobactam Sod 100 ml @ 200 mls/hr Q6 IVPB Last administered on 01/31/19at 11:55; Admin Dose 200 MLS/HR; Start 01/29/19 at 18:00 Sodium Chloride 1,000 ml @ 50 mls/hr Q20H IV Last administered on 01/30/19at 22 :59; Admin Dose 50 MLS/HR; Start 01/29/19 at 14:00 Diagnostic Test (Pha) (Accu-Chek) 1 ea 02 XX Last administered on 01/31/19at 02:12; Admin Dose 1 EA; Start 01/30/19 at 02:00 Insulin Aspart (Novolog Insulin Pen) NOVOLOG *MILD* ALGORITHM WITH MEALS BEDTIME SC Last administered on 01/31/19at 12:05; Admin Dose 3 UNIT; Start 01/29/19 at 18:00 Miscellaneous Information 1 ea NOTE XX ; Start 01/29/19 at 15:00 Glucose (Glutose) 15 gm Q15M PRN PO DECREASED GLUCOSE; Start 01/29/19 at 15:00 Glucose (Glutose) 22.5 gm Q15M PRN PO DECREASED GLUCOSE; Start 01/29/19 at 15:00 Dextrose (D50w Syringe) 25 ml Q15M PRN IV DECREASED GLUCOSE; Start 01/29/19 at 15:00 Dextrose (D50w Syringe) 50 ml Q15M PRN IV DECREASED GLUCOSE; Start 01/29/19 at 15:00 Glucagon (Glucagen) 1 mg Q15M PRN IM DECREASED GLUCOSE; Start 01/29/19 at 15:00 Glucose (Glutose) 15 gm Q15M PRN BUCCAL DECREASED GLUCOSE; Start 01/29/19 at 15:00 Vancomycin HCl 1.5 gm/Sodium Chloride 250 ml @ 83.333 mls/ hr Q12H IVPB Last administered on 01/31/19at 13:36; Admin Dose 83.333 MLS/HR; Start 01/30/19 at 13:00; Stop 01/31/19 at 17:00 Sodium Hypochlorite (Dakins Diluted (1/40)) 1 applic DAILY TP ; Start 01/31/19 at 09:00 Insulin Aspart (Novolog Insulin Pen) 13 unit WITH MEALS SC Last administered on 01/31/19at 12:04; Admin Dose 13 UNIT; Start 01/31/19 at 11:30 Insulin Glargine (Lantus) 35 units DAILY@2000 SC ; Start 01/31/19 at 20:00 Miscellaneous Information (*Rx Drug Level Order Reminder*) VANCO TROUGH ON @ 300 1300 ONCE XX ; Start 02/01/19 at 13:00; Stop 02/01/19 at 13:01 Vancomycin HCl 1.25 gm/Sodium Chloride 250 ml @ 83.333 mls/ hr Q8H IVPB ; Start 01/31/19 at 22:00 VTE Prophylaxis Risk score (from Nsg)>0 risk: 3 SCD applied (from Nsg): Yes Lines/Catheters IV Catheter Type: Barnett in Place: No Assessment/Plan Hospital Course Subjective Patient doing well, no acute complaints Objective Physical exam General: Patient is laying in bed and answers questions appropriately Mentation: Patient is alert and oriented 4, Head: Normocephalic atraumatic Eyes: EOMI, pupils reactive to light Neck: Supple, nontender, midline Respiratory: Clear to auscultation bilaterally Cardiovascular: regular rate, no obvious murmurs Gastrointestinal: non-tender to palpation, bowel sounds heard. Neurological: Moves all extremities spontaneously Skin: Left big toe black, bleeding mildly Assessment and plan Left toe fracture and necrosis, cannot rule out osteomyelitis -Podiatry consulted -MRI notes multiple issues, cannot rule out osteomyelitis -X-ray noted -significant stenosis found on LE arterial study, will speak to podiatry for possible vascular consult. Sepsis secondary to above left toe fracture necrosis -Broad-spectrum IV antibiotic -Infectious disease consulted -Podiatry consulted -IV fluids -Blood cultures taken Uncontrolled diabetes mellitus -We will have to adjust Lantus and mealtime and sliding scale, conservation educator will also need to be called as patient was never really on medications, patient will likely lead with a combination of oral and insulins Degenerative spine disease -Chronic, monitor Disposition -Podiatry and infectious disease recs pending, ALVARO MCCORD Jan 31, 2019 15:06
--- NOTE | 2019-01-31 16:03 | CONS ---
Assessment/Plan Assessment/Plan Hospital Course (Demo Recall) ID PROGRESS NOTE CURRENT ABX: DAY #2.5 => Vanco IV + Zosyn 01/31/19 0550 01/31/19 1204 24H INTERVAL SUMMARY * Awake, alert, responsive, VSS, no fevers, coping well with pain, no complaints * BLEXT stenosis on duplex scan today DIAGNOSTIC IMAGING * 01/31/19 ARTERIAL DUPLEX BLEXT: IMPRESSION: * Monophasic wave form in the right dorsalis pedis artery consistent with a significant stenosis. * Monophasic wave form in the left posterior tibial and dorsalis pedis arteries consistent with a significant infrapopliteal stenosis. * 01/29/19 MRI FOOT: * 1. Slightly comminuted essentially nondisplaced first distal tuft fracture with adjacent soft tissue swelling and possible skin defect. Questionable subtle cortical irregularity along the fracture margins may be related to the fracture though if there is a skin defect clinically early osteo myelitis is not entirely excluded. Continued clinical follow-up is advised and consider short-term follow-up MRI for further evaluation. * 2. 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 * 3. No discrete drainable fluid collection. MICRO/OTHER * 01/29/19 (-)MRSA Nares * 01/29/19 Urine Cx (-) * 01/29/19 BCx (-) PHYSICAL EXAMINATION: GENERAL: VSS, NAD HEENT: AT, NC, anicteric, NECK: Supple, CHEST: Equal chest rise bilaterally, without dyspnea on observation HEART: Pulse RRR ABDOMEN: Soft / NT EXTREMITIES: Warm, dry / Foot DSG C/D/I SKIN: No rash, no diaphoresis ID ASSESSMENT 58 yo M admit with: 1. Left toe fracture and necrosis, cannot rule out osteomyelitis * MRI notes multiple issues, cannot rule out osteomyelitis 2. Sepsis secondary to above left toe fracture necrosis 3. 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 Severe PAD BLEXT * 01/31/19 ARTERIAL DUPLEX BLEXT: IMPRESSION: * Monophasic wave form in the right dorsalis pedis artery consistent with a significant stenosis. * Monophasic wave form in the left posterior tibial and dorsalis pedis arteries consistent with a significant infrapopliteal stenosis. 5. Degenerative spine disease 6. Chronic pain issues (-)MRSA Nares ABX ALLERGIES: KNDA INVASIVES: PIV CURRENT ABX: DAY #2.5 => Vanco IV + Zosyn ID RECOMMENDATIONS/PLAN: 1. Continue current ABX 2. Follow Vascular/Surgical recommendations . . Consultation Date/Type/Reason Admit Date/Time Jan 29, 2019 at 14:15 Initial Consult Date Date/Time of Note DATE: 01/31/19 TIME: 15:57 Exam/Review of Systems Exam Vitals Vital Signs Date Temp Pulse Resp B/P (MAP) Pulse Ox O2 O2 Flow FiO2 Time Delivery Rate 01/31/19 99.5 82 17 98/52 (67) 94 Room Air 13:57 Intake and Output 01/30/19 01/30/19 01/31/19 1515:00 23:00 07:00 IntakeIntake Total 1120 ml 750 ml 950 ml OutputOutput Total 2000 ml 400 ml 1200 ml BalanceBalance -880 ml 350 ml -250 ml Results Result Diagram: 01/31/19 0550 01/31/19 1204 Results 24hrs Laboratory Tests Test 01/30/19 17:23 01/30/19 20:42 01/31/19 02:11 01/31/19 05:49 Bedside Glucose 252 H 284 H 226 H Sodium Level 137 Potassium Level 3.9 Chloride Level 102 Carbon Dioxide Level 28 Anion Gap 7 Blood Urea Nitrogen 11 Creatinine 0.49 L Est Glomerular > 60 Filtrat Rate mL/min Glucose Level 207 Calcium Level 8.7 Phosphorus Level 3.6 Magnesium Level 1.9 Test 01/31/19 05:50 01/31/19 08:10 01/31/19 12:01 01/31/19 12:04 White Blood Count 8.2 Red Blood Count 4.41 L Hemoglobin 12.9 L Hematocrit 37.8 L Mean Corpuscular 85.7 Volume Mean Corpuscular 29.3 Hemoglobin Mean Corpuscular 34.1 Hemoglobin Concent Red Cell 11.8 Distribution Width Platelet Count 220 Mean Platelet Volume 10.3 Immature 0.900 H Granulocytes % Neutrophils % 62.7 Lymphocytes % 23.7 Monocytes % 9.6 Eosinophils % 2.9 Basophils % 0.2 Nucleated Red Blood 0.0 Cells % Immature 0.070 H Granulocytes # Neutrophils # 5.1 Lymphocytes # 1.9 Monocytes # 0.8 Eosinophils # 0.2 Basophils # 0.0 Nucleated Red Blood 0.0 Cells # Bedside Glucose 205 225 H Blood Urea Nitrogen 9 Creatinine 0.58 L Vancomycin Level 6.3 L Trough Medications Medication Current Medications IV Flush (NS 3 ml) 3 ml PER PROTOCOL IV ; Start 01/29/19 at 14:00 Ondansetron HCl (Zofran Inj) 4 mg Q6H PRN IV NAUSEA/VOMITING; Start 01/29/19 at 14:00 Acetaminophen (Tylenol Tab) 650 mg Q6H PRN PO .PAIN 1-3 OR TEMP; Start 01/29/19 at 14:00 Oxycodone/ Acetaminophen (Percocet (5/ 325)) 1 tab Q6H PRN PO .PAINS 4-6 Last administered on 01/31/19at 11:58; Admin Dose 1 TAB; Start 01/29/19 at 14:00 Morphine Sulfate (morphine) 2 mg Q4H PRN IV .PAIN 7-10; Start 01/29/19 at 14:00 Vancomycin HCl (Vanco Iv Per Pharmacy) VANCOMYCIN PER PHARMACY PER PROTOCOL XX ; Start 01/29/19 at 14:00 Piperacillin Sod/ Tazobactam Sod 100 ml @ 200 mls/hr Q6 IVPB Last administered on 01/31/19at 11:55; Admin Dose 200 MLS/HR; Start 01/29/19 at 18:00 Sodium Chloride 1,000 ml @ 50 mls/hr Q20H IV Last administered on 01/30/19at 22:59; Admin Dose 50 MLS/HR; Start 01/29/19 at 14:00 Diagnostic Test (Pha) (Accu-Chek) 1 ea 02 XX Last administered on 01/31/19at 02:12; Admin Dose 1 EA; Start 01/30/19 at 02:00 Insulin Aspart (Novolog Insulin Pen) NOVOLOG *MILD* ALGORITHM WITH MEALS BEDTIME SC Last administered on 01/31/19at 12:05; Admin Dose 3 UNIT; Start 01/29/19 at 18:00 Miscellaneous Information 1 ea NOTE XX ; Start 01/29/19 at 15:00 Glucose (Glutose) 15 gm Q15M PRN PO DECREASED GLUCOSE; Start 01/29/19 at 15:00 Glucose (Glutose) 22.5 gm Q15M PRN PO DECREASED GLUCOSE; Start 01/29/19 at 15:00 Dextrose (D50w Syringe) 25 ml Q15M PRN IV DECREASED GLUCOSE; Start 01/29/19 at 15:00 Dextrose (D50w Syringe) 50 ml Q15M PRN IV DECREASED GLUCOSE; Start 01/29/19 at 15:00 Glucagon (Glucagen) 1 mg Q15M PRN IM DECREASED GLUCOSE; Start 01/29/19 at 15:00 Glucose (Glutose) 15 gm Q15M PRN BUCCAL DECREASED GLUCOSE; Start 01/29/19 at 15:00 Vancomycin HCl 1.5 gm/Sodium Chloride 250 ml @ 83.333 mls/ hr Q12H IVPB Last administered on 01/31/19at 13:36; Admin Dose 83.333 MLS/HR; Start 01/30/19 at 13:00; Stop 01/31/19 at 17:00 Sodium Hypochlorite (Dakins Diluted ()) 1 applic DAILY TP ; Start 01/31/19 at 09:00 Insulin Aspart (Novolog Insulin Pen) 13 unit WITH MEALS SC Last administered on 01/31/19at 12:04; Admin Dose 13 UNIT; Start 01/31/19 at 11:30 Insulin Glargine (Lantus) 35 units DAILY@2000 SC ; Start 01/31/19 at 20:00 Miscellaneous Information (*Rx Drug Level Order Reminder*) VANCO TROUGH ON @ 300 1300 ONCE XX ; Start 02/01/19 at 13:00; Stop 02/01/19 at 13:01 Vancomycin HCl 1.25 gm/Sodium Chloride 250 ml @ 83.333 mls/ hr Q8H IVPB ; Start 01/31/19 at 22:00 RUIZ WALLACE NP Jan 31, 2019 16:03
[2019-01-31] MEDS: SOD CHLORIDE 0.9% 1,000 ML IV SCH (18:45)
[2019-01-31 20:00] VITALS: BP 135/72; PULSE 80; RESP 18
[2019-01-31] MEDS: INSULIN GLARGINE [LANTus] (100 UNITS/ML) SYG SC SCH (20:51)
[2019-01-31] MEDS: VANCOMYCIN HCL 1.25 GM in SOD CHLORIDE 0.9% 250 ML IVPB SCH (21:58)
[2019-02-01] MEDS: PIPER-TAZO 3.375 GM IV (PMX) 100 ML IVPB SCH ×3 (01:15→11:26)
[2019-02-01] MEDS: OXYCODONE/ACETAMINOPHEN (5/325) TAB PO PRN ×3 (01:23→20:10)
[2019-02-01 02:00] VITALS: BP 126/62; PULSE 67; RESP 18
[2019-02-01] MEDS: ACCU-CHEK XX SCH (02:00)
[2019-02-01] MEDS: VANCOMYCIN HCL 1.25 GM in SOD CHLORIDE 0.9% 250 ML IVPB SCH ×3 (06:34→22:03)
[2019-02-01 08:00] VITALS: BP 130/73; PULSE 82; RESP 17
[2019-02-01] MEDS: INSULIN ASPART [NOVOLOG] 3 ML PEN SC SCH ×7 (08:05→21:06)
[2019-02-01] MEDS: DAKINS 0.0125%(1/40) 473 ML SOLUTION TP SCH (11:35)
--- NOTE | 2019-02-01 11:54 | PN ---
Date/Time of Note Date/Time of Note DATE: 02/01/19 TIME: 11:54 Objective Vitals Vital Signs Date Temp Pulse Resp B/P (MAP) Pulse Ox O2 O2 Flow FiO2 Time Delivery Rate 02/01/19 98.7 82 17 130/73 97 High Flow 08:00 (92) Intake and Output 01/31/19 01/31/19 02/01/19 1515:00 23:00 07:00 IntakeIntake Total 1100 ml 350 ml 850 ml OutputOutput Total 850 ml 850 ml 2100 ml BalanceBalance 250 ml -500 ml -1250 ml Results Result Diagram: 02/01/1962102/01/19621 Medications Medications Current Medications IV Flush (NS 3 ml) 3 ml PER PROTOCOL IV ; Start 01/29/19 at 14:00 Ondansetron HCl (Zofran Inj) 4 mg Q6H PRN IV NAUSEA/VOMITING; Start 01/29/19 at 14:00 Acetaminophen (Tylenol Tab) 650 mg Q6H PRN PO .PAIN 1-3 OR TEMP; Start 01/29/19 at 14:00 Oxycodone/ Acetaminophen (Percocet (5/ 325)) 1 tab Q6H PRN PO .PAINS 4-6 Last administered on 02/01/19at 08:04; Admin Dose 1 TAB; Start 01/29/19 at 14:00 Morphine Sulfate (morphine) 2 mg Q4H PRN IV .PAIN 7-10; Start 01/29/19 at 14:00 Vancomycin HCl (Vanco Iv Per Pharmacy) VANCOMYCIN PER PHARMACY PER PROTOCOL XX ; Start 01/29/19 at 14:00 Piperacillin Sod/ Tazobactam Sod 100 ml @ 200 mls/hr Q6 IVPB Last administered on 02/01/19at 11:26; Admin Dose 200 MLS/HR; Start 01/29/19 at 18:00 Sodium Chloride 1,000 ml @ 50 mls/hr Q20H IV Last administered on 01/31/19at 18:45; Admin Dose 50 MLS/HR; Start 01/29/19 at 14:00 Diagnostic Test (Pha) (Accu-Chek) 1 ea 02 XX Last administered on 01/31/19at 02:12; Admin Dose 1 EA; Start 01/30/19 at 02:00 Insulin Aspart (Novolog Insulin Pen) NOVOLOG *MILD* ALGORITHM WITH MEALS BEDTIME SC Last administered on 02/01/19at 08:06; Admin Dose 2 UNIT; Start 01/29/19 at 18:00 Miscellaneous Information 1 ea NOTE XX ; Start 01/29/19 at 15:00 Glucose (Glutose) 15 gm Q15M PRN PO DECREASED GLUCOSE; Start 01/29/19 at 15:00 Glucose (Glutose) 22.5 gm Q15M PRN PO DECREASED GLUCOSE; Start 01/29/19 at 15:00 Dextrose (D50w Syringe) 25 ml Q15M PRN IV DECREASED GLUCOSE; Start 01/29/19 at 15:00 Dextrose (D50w Syringe) 50 ml Q15M PRN IV DECREASED GLUCOSE; Start 01/29/19 at 15:00 Glucagon (Glucagen) 1 mg Q15M PRN IM DECREASED GLUCOSE; Start 01/29/19 at 15:00 Glucose (Glutose) 15 gm Q15M PRN BUCCAL DECREASED GLUCOSE; Start 01/29/19 at 15:00 Sodium Hypochlorite (Dakins Diluted ()) 1 applic DAILY TP Last administered on 02/01/19at 11:35; Admin Dose 1 APPLIC; Start 01/31/19 at 09:00 Insulin Aspart (Novolog Insulin Pen) 13 unit WITH MEALS SC Last administered on 02/01/19at 08:05; Admin Dose 13 UNIT; Start 01/31/19 at 11:30 Insulin Glargine (Lantus) 35 units DAILY@2000 SC Last administered on 01/31/19at 20:51; Admin Dose 35 UNITS; Start 01/31/19 at 20:00 Miscellaneous Information (*Rx Drug Level Order Reminder*) VANCO TROUGH ON @ 300 1300 ONCE XX ; Start 02/01/19 at 13:00; Stop 02/01/19 at 13:01 Vancomycin HCl 1.25 gm/Sodium Chloride 250 ml @ 83.333 mls/ hr Q8H IVPB Last administered on 02/01/19at 06:34; Admin Dose 83.333 MLS/HR; Start 01/31/19 at 22:00 VTE Prophylaxis Risk score (from Nsg)>0 risk: 3 SCD applied (from Ns): Yes Lines/Catheters IV Catheter Type: Barnett in Place: No Assessment/Plan Hospital Course Subjective Patient doing well, no acute complaints Objective Physical exam General: Patient is laying in bed and answers questions appropriately Mentation: Patient is alert and oriented 4, Head: Normocephalic atraumatic Eyes: EOMI, pupils reactive to light Neck: Supple, nontender, midline Respiratory: Clear to auscultation bilaterally Cardiovascular: regular rate, no obvious murmurs Gastrointestinal: non-tender to palpation, bowel sounds heard. Neurological: Moves all extremities spontaneously Skin: Left big toe black, bleeding mildly Assessment and plan Left toe fracture and necrosis, cannot rule out osteomyelitis -Podiatry consulted -MRI notes multiple issues, cannot rule out osteomyelitis -X-ray noted -significant stenosis found on LE arterial study, consulted Dr. Ritter, vascular Sepsis secondary to above left toe fracture necrosis -Broad-spectrum IV antibiotic -Infectious disease consulted -Podiatry consulted -IV fluids -Blood cultures taken Uncontrolled diabetes mellitus -We will have to adjust Lantus and mealtime and sliding scale, asthma educator will also need to be called as patient was never really on medications, patient will likely lead with a combination of oral and insulins Degenerative spine disease -Chronic, monitor Disposition -Podiatry and infectious disease recs pending, -vascular surgery consulted ALVARO MCCORD Feb 01, 2019 11:54
--- NOTE | 2019-02-01 14:14 | CONS ---
Assessment/Plan Assessment/Plan Hospital Course (Demo Recall) Patient is alert feels good denies pain no fevers overnight. T-max 99.9. WBC 9.1, no shift no bands BUN 11 creatinine 0.62 Microbiology: Blood and urine cultures since admission negative, chest preliminary Antimicrobials: Vancomycin, Zosyn Physical examination: Well-developed obese elderly man who is alert in no distress. Head atraumatic normocephalic neck is supple. Chest rise symme trical. Breath sounds clear. Heart: S1-S2. Abdomen soft bowel sounds present. Extremities with left foot dressing intact Assessment: 1. 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 Diabetes 3. Diabetic neuropathy Plan: Patient is stable, podiatry on case, change Zosyn to Rocephin, continue vancomycin, anticipate treating with long-term IV antibiotics Consultation Date/Type/Reason Admit Date/Time Jan 29, 2019 at 14:15 Initial Consult Date Type of Consult id Date/Time of Note DATE: 02/01/19 TIME: 14:14 Exam/Review of Systems Exam Vitals Vital Signs Date Temp Pulse Resp B/P (MAP) Pulse Ox O2 O2 Flow FiO2 Time Delivery Rate 02/01/19 98.7 82 17 130/73 97 High Flow 08:00 (92) Intake and Output 01/31/19 01/31/19 02/01/19 1515:00 23:00 07:00 IntakeIntake Total 1100 ml 350 ml 850 ml OutputOutput Total 850 ml 850 ml 2100 ml BalanceBalance 250 ml -500 ml -1250 ml Results Result Diagram: 02/01/19 0622 02/01/19 0622 Results 24hrs Laboratory Tests Test 01/31/19 17:14 01/31/19 20:50 02/01/19 02:11 02/01/19 06:22 Bedside Glucose 281 H 149 135 White Blood Count 9.1 Red Blood Count 4.34 L Hemoglobin 12.7 L Hematocrit 37.7 L Mean Corpuscular 86.9 Volume Mean Corpuscular 29.3 Hemoglobin Mean Corpuscular 33.7 Hemoglobin Concent Red Cell 11.7 Distribution Width Platelet Count 230 Mean Platelet Volume 10.5 H Immature 0.600 H Granulocytes % Neutrophils % 68.9 Lymphocytes % 19.8 Monocytes % 8.5 Eosinophils % 2.1 Basophils % 0.1 Nucleated Red Blood 0.0 Cells % Immature 0.050 H Granulocytes # Neutrophils # 6.3 Lymphocytes # 1.8 Monocytes # 0.8 Eosinophils # 0.2 Basophils # 0.0 Nucleated Red Blood 0.0 Cells # Sodium Level 138 Potassium Level 3.7 Chloride Level 103 Carbon Dioxide Level 28 Anion Gap 7 Blood Urea Nitrogen 11 Creatinine 0.62 Est Glomerular > 60 Filtrat Rate mL/min Glucose Level 213 Calcium Level 8.8 Phosphorus Level 3.8 Magnesium Level 1.8 Test 02/01/19 07:55 02/01/19 11:35 Bedside Glucose 191 218 Medications Medication Current Medications IV Flush (NS 3 ml) 3 ml PER PROTOCOL IV ; Start 01/29/19 at 14:00 Ondansetron HCl (Zofran Inj) 4 mg Q6H PRN IV NAUSEA/VOMITING; Start 01/29/19 at 14:00 Acetaminophen (Tylenol Tab) 650 mg Q6H PRN PO .PAIN 1-3 OR TEMP; Start 01/29/19 at 14:00 Oxycodone/ Acetaminophen (Percocet (5/ 325)) 1 tab Q6H PRN PO .PAINS 4-6 Last administered on 02/01/19at 08:04; Admin Dose 1 TAB; Start 01/29/19 at 14:00 Morphine Sulfate (morphine) 2 mg Q4H PRN IV .PAIN 7-10; Start 01/29/19 at 14:00 Vancomycin HCl (Vanco Iv Per Pharmacy) VANCOMYCIN PER PHARMACY PER PROTOCOL XX ; Start 01/29/19 at 14:00 Piperacillin Sod/ Tazobactam Sod 100 ml @ 200 mls/hr Q6 IVPB Last administered on 02/01/19at 11:26; Admin Dose 200 MLS/HR; Start 01/29/19 at 18:00 Sodium Chloride 1,000 ml @ 50 mls/hr Q20H IV Last administered on 01/31/19at 18:45; Admin Dose 50 MLS/HR; Start 01/29/19 at 14:00 Diagnostic Test (Pha) (Accu-Chek) 1 ea 02 XX Last administered on 01/31/19at 02:12; Admin Dose 1 EA; Start 01/30/19 at 02:00 Insulin Aspart (Novolog Insulin Pen) NOVOLOG *MILD* ALGORITHM WITH MEALS BEDTIME SC Last administered on 02/01/19at 12:30; Admin Dose 2 UNIT; Start 01/29/19 at 18:00 Miscellaneous Information 1 ea NOTE XX ; Start 01/29/19 at 15:00 Glucose (Glutose) 15 gm Q15M PRN PO DECREASED GLUCOSE; Start 01/29/19 at 15:00 Glucose (Glutose) 22.5 gm Q15M PRN PO DECREASED GLUCOSE; Start 01/29/19 at 15:00 Dextrose (D50w Syringe) 25 ml Q15M PRN IV DECREASED GLUCOSE; Start 01/29/19 at 15:00 Dextrose (D50w Syringe) 50 ml Q15M PRN IV DECREASED GLUCOSE; Start 01/29/19 at 15:00 Glucagon (Glucagen) 1 mg Q15M PRN IM DECREASED GLUCOSE; Start 01/29/19 at 15:00 Glucose (Glutose) 15 gm Q15M PRN BUCCAL DECREASED GLUCOSE; Start 01/29/19 at 15:00 Sodium Hypochlorite (Dakins Diluted ()) 1 applic DAILY TP Last administered on 02/01/19at 11:35; Admin Dose 1 APPLIC; Start 01/31/19 at 09:00 Insulin Aspart (Novolog Insulin Pen) 13 unit WITH MEALS SC Last administered on 02/01/19at 12:29; Admin Dose 13 UNIT; Start 01/31/19 at 11:30 Insulin Glargine (Lantus) 35 units DAILY@2000 SC Last administered on 01/31/19at 20:51; Admin Dose 35 UNITS; Start 01/31/19 at 20:00 Vancomycin HCl 1.25 gm/Sodium Chloride 250 ml @ 83.333 mls/ hr Q8H IVPB Last administered on 02/01/19at 06:34; Admin Dose 83.333 MLS/HR; Start 01/31/19 at 22:00 FROYLAN VASQUEZ NP Feb 01, 2019 14:14
[2019-02-01 15:17] VITALS: BP 151/80; PULSE 94; RESP 17
[2019-02-01] MEDS: CEFTRIAXONE 1 GM/50 ML (PMX) 50 ML IVPB SCH (17:57)
--- NOTE | 2019-02-01 18:42 | CONS ---
Assessment/Plan Assessment/Plan Assessment/Plan (Daily) 58M former smoker, long standing uncontrolled DM now w/ L 1st toe gangrene/infection after trauma to site; evidence of arterial insufficiency at LLE Plan: -Appreciate medical/podiatry management -Will plan for LLE angiogram w/ possible intervention - indications, risks and benefits d/w pt, who agreed to proceed -NPO after midnight -Cont wound care per podiatry -Cont IV abx as per primary team -D/w Dr. Alcaraz Consultation Date/Type/Reason Admit Date/Time Jan 29, 2019 at 14:15 Date of Consultation: Feb 01, 2019 Reason for Consultation Left toe fracture, diabetic wound, PVD Requesting Provider: ALVARO MCCORD Date/Time of Note DATE: 02/01/19 TIME: 18:41 Hx of Present Illness 58M former smoker, with history of long time diabetes (~10 years) who has been noncompliant w/ medical therapy and has not followed w/ a physician for many years now presents for left toe pain after possible injury to site about 7 days prior to admission. Pt found to have fracture at L toe along w/ gangrenous skin changes w/ purulent drainage. He denies h/o DVT, claudication, rest pain, or wounds or interventions to BLE. He currently denies chest pain, shortness of b reath, nausea, vomiting, abdominal pain, pain elsewhere. He denies issues w/ other toes. BLE arterial u/s showed monophasic flow at L tibial arteries but no overt occlusions; results d/w pt. 12-point ROS performed and negative except for HPI Past Medical History Medical History: diabetes Home Meds No Active Prescriptions or Reported Meds Medications Current Medications IV Flush (NS 3 ml) 3 ml PER PROTOCOL IV ; Start 01/29/19 at 14:00 Ondansetron HCl (Zofran Inj) 4 mg Q6H PRN IV NAUSEA/VOMITING; Start 01/29/19 at 14:00 Acetaminophen (Tylenol Tab) 650 mg Q6H PRN PO .PAIN 1-3 OR TEMP; Start 01/29/19 at 14:00 Oxycodone/ Acetaminophen (Percocet (5/ 325)) 1 tab Q6H PRN PO .PAINS 4-6 Last administered on 02/01/19at 08:04; Admin Dose 1 TAB; Start 01/29/19 at 14:00 Morphine Sulfate (morphine) 2 mg Q4H PRN IV .PAIN 7-10; Start 01/29/19 at 14:00 Vancomycin HCl (Vanco Iv Per Pharmacy) VANCOMYCIN PER PHARMACY PER PROTOCOL XX ; Start 01/29/19 at 14:00 Sodium Chloride 1,000 ml @ 50 mls/hr Q20H IV Last administered on 01/31/19at 18:45; Admin Dose 50 MLS/HR; Start 01/29/19 at 14:00 Diagnostic Test (Pha) (Accu-Chek) 1 ea 02 XX Last administered on 01/31/19at 02:12; Admin Dose 1 EA; Start 01/30/19 at 02:00 Insulin Aspart (Novolog Insulin Pen) NOVOLOG *MILD* ALGORITHM WITH MEALS BEDTIME SC Last administered on 02/01/19at 17:31; Admin Dose 2 UNIT; Start 01/29/19 at 18:00 Miscellaneous Information 1 ea NOTE XX ; Start 01/29/19 at 15:00 Glucose (Glutose) 15 gm Q15M PRN PO DECREASED GLUCOSE; Start 01/29/19 at 15:00 Glucose (Glutose) 22.5 gm Q15M PRN PO DECREASED GLUCOSE; Start 01/29/19 at 1 5:00 Dextrose (D50w Syringe) 25 ml Q15M PRN IV DECREASED GLUCOSE; Start 01/29/19 at 15:00 Dextrose (D50w Syringe) 50 ml Q15M PRN IV DECREASED GLUCOSE; Start 01/29/19 at 15:00 Glucagon (Glucagen) 1 mg Q15M PRN IM DECREASED GLUCOSE; Start 01/29/19 at 15:00 Glucose (Glutose) 15 gm Q15M PRN BUCCAL DECREASED GLUCOSE; Start 01/29/19 at 15:00 Sodium Hypochlorite (Dakins Diluted ()) 1 applic DAILY TP Last administered on 02/01/19at 11:35; Admin Dose 1 APPLIC; Start 01/31/19 at 09:00 Insulin Aspart (Novolog Insulin Pen) 13 unit WITH MEALS SC Last administered on 02/01/19at 17:30; Admin Dose 13 UNIT; Start 01/31/19 at 11:30 Insulin Glargine (Lantus) 35 units DAILY@2000 SC Last administered on 01/31/19at 20:51; Admin Dose 35 UNITS; Start 01/31/19 at 20:00 Vancomycin HCl 1.25 gm/Sodium Chloride 250 ml @ 83.333 mls/ hr Q8H IVPB Last administered on 02/01/19at 14:21; Admin Dose 83.333 MLS/HR; Start 01/31/19 at 22:00 Ceftriaxone Sodium 50 ml @ 100 mls/hr Q24H IVPB Last administered on 02/01/19at 17:57; Admin Dose 100 MLS/HR; Start 02/01/19 at 14:30 Allergies: Coded Allergies: No Known Allergy (Unverified , 01/29/19) Past Surgical History Denies Social History Smoking Status: Former smoker Exam/Review of Systems Exam Vitals Vital Signs Date Temp Pulse Resp B/P (MAP) Pulse Ox O2 O2 Flow FiO2 Time Delivery Rate 02/01/19 99.7 94 17 151/80 96 Room Air 15:17 (103) Intake and Output 01/31/19 01/31/19 02/01/19 1515:00 23:00 07:00 IntakeIntake Total 1100 ml 350 ml 850 ml OutputOutput Total 850 ml 850 ml 2100 ml BalanceBalance 250 ml -500 ml -1250 ml Exam Gen: AAOx3, NAD Neck: supple Heart: Reg Lungs: Clear Abd: obese, soft, NT, ND Extr: BLE warm, no edema, chronic stasis changes; L foot hallux gangrene with open wound w/ mild drainage Pulses: 2+ femoral and popliteal pulses bilaterally; 1+ R PT pulse, non-palpable L pedal pulses Results Result Diagram: 02/01/1962102/01/19 06 Results 24hrs Laboratory Tests Test 01/31/19 20:50 02/01/19 02:11 02/01/19 06:22 02/01/19 07:55 Bedside Glucose 149 135 191 White Blood Count 9.1 Red Blood Count 4.34 L Hemoglobin 12.7 L Hematocrit 37.7 L Mean Corpuscular 86.9 Volume Mean Corpuscular 29.3 Hemoglobin Mean Corpuscular 33.7 Hemoglobin Concent Red Cell 11.7 Distribution Width Platelet Count 230 Mean Platelet Volume 10.5 H Immature 0.600 H Granulocytes % Neutrophils % 68.9 Lymphocytes % 19.8 Monocytes % 8.5 Eosinophils % 2.1 Basophils % 0.1 Nucleated Red Blood 0.0 Cells % Immature 0.050 H Granulocytes # Neutrophils # 6.3 Lymphocytes # 1.8 Monocytes # 0.8 Eosinophils # 0.2 Basophils # 0.0 Nucleated Red Blood 0.0 Cells # Sodium Level 138 Potassium Level 3.7 Chloride Level 103 Carbon Dioxide Level 28 Anion Gap 7 Blood Urea Nitrogen 11 Creatinine 0.62 Est Glomerular > 60 Filtrat Rate mL/min Glucose Level 213 Calcium Level 8.8 Phosphorus Level 3.8 Magnesium Level 1.8 Test 02/01/19 11:35 02/01/19 13:39 02/01/19 17:26 Bedside Glucose 218 219 Vancomycin Level 12.1 Trough Medications Medication Current Medications IV Flush (NS 3 ml) 3 ml PER PROTOCOL IV ; Start 01/29/19 at 14:00 Ondansetron HCl (Zofran Inj) 4 mg Q6H PRN IV NAUSEA/VOMITING; Start 01/29/19 at 14:00 Acetaminophen (Tylenol Tab) 650 mg Q6H PRN PO .PAIN 1-3 OR TEMP; Start 01/29/19 at 14:00 Oxycodone/ Acetaminophen (Percocet (5/ 325)) 1 tab Q6H PRN PO .PAINS 4-6 Last administered on 02/01/19at 08:04; Admin Dose 1 TAB; Start 01/29/19 at 14:00 Morphine Sulfate (morphine) 2 mg Q4H PRN IV .PAIN 7-10; Start 01/29/19 at 14:00 Vancomycin HCl (Vanco Iv Per Pharmacy) VANCOMYCIN PER PHARMACY PER PROTOCOL XX ; Start 01/29/19 at 14:00 Sodium Chloride 1,000 ml @ 50 mls/hr Q20H IV Last administered on 01/31/19at 18:45; Admin Dose 50 MLS/HR; Start 01/29/19 at 14:00 Diagnostic Test (Pha) (Accu-Chek) 1 ea 02 XX Last administered on 01/31/19at 02:12; Admin Dose 1 EA; Start 01/30/19 at 02:00 Insulin Aspart (Novolog Insulin Pen) NOVOLOG *MILD* ALGORITHM WITH MEALS BEDTI ME SC Last administered on 02/01/19at 17:31; Admin Dose 2 UNIT; Start 01/29/19 at 18:00 Miscellaneous Information 1 ea NOTE XX ; Start 01/29/19 at 15:00 Glucose (Glutose) 15 gm Q15M PRN PO DECREASED GLUCOSE; Start 01/29/19 at 15:00 Glucose (Glutose) 22.5 gm Q15M PRN PO DECREASED GLUCOSE; Start 01/29/19 at 15:00 Dextrose (D50w Syringe) 25 ml Q15M PRN IV DECREASED GLUCOSE; Start 01/29/19 at 15:00 Dextrose (D50w Syringe) 50 ml Q15M PRN IV DECREASED GLUCOSE; Start 01/29/19 at 15:00 Glucagon (Glucagen) 1 mg Q15M PRN IM DECREASED GLUCOSE; Start 01/29/19 at 15:00 Glucose (Glutose) 15 gm Q15M PRN BUCCAL DECREASED GLUCOSE; Start 01/29/19 at 15:00 Sodium Hypochlorite (Dakins Diluted ()) 1 applic DAILY TP Last administered on 02/01/19at 11:35; Admin Dose 1 APPLIC; Start 01/31/19 at 09:00 Insulin Aspart (Novolog Insulin Pen) 13 unit WITH MEALS SC Last administered on 02/01/19at 17:30; Admin Dose 13 UNIT; Start 01/31/19 at 11:30 Insulin Glargine (Lantus) 35 units DAILY@2000 SC Last administered on 01/31/19at 20:51; Admin Dose 35 UNITS; Start 01/31/19 at 20:00 Vancomycin HCl 1.25 gm/Sodium Chloride 250 ml @ 83.333 mls/ hr Q8H IVPB Last administered on 02/01/19at 14:21; Admin Dose 83.333 MLS/HR; Start 01/31/19 at 22:00 Ceftriaxone Sodium 50 ml @ 100 mls/hr Q24H IVPB Last administered on 02/01/19at 17:57; Admin Dose 100 MLS/HR; Start 02/01/19 at 14:30 KEE WILL MD Feb 01, 2019 18:42
--- NOTE | 2019-02-01 19:14 | CONS ---
Assessment/Plan Assessment/Plan Assessment/Plan (Daily) Left hallux gangrene Left hallux minimally displaced open fracture Left hallux suspicion for osteomyelitis PAD DM2 with peripheral neuropathy Uncontrolled DM2 Plan MRI and X-rays reviewed and noted comminuted distal phalanx fracture of left hallux. There is gangrenous changes noted to the skin and will allow skin to demarcate. Discussed with vascular surgery and there is plan for angiogram. Recommend daily dressing changes with dakins irrigation and betadine with dry sterile dressings. Wound culture of left hallux ulcer showing staph species. Recommend IV abx per ID recommendations. Discussed with patient that there is a high likelihood he may have a hallux amputation due to gangrene. Consultation Date/Type/Reason Admit Date/Time Jan 29, 2019 at 14:15 Initial Consult Date 02/01/19 Requesting Provider: ALVARO MCCORD Date/Time of Note DATE: 02/01/19 TIME: 19:14 24 HR Interval Summary Free Text/Dictation No acute events overnight. Exam/Review of Systems Exam Vitals Vital Signs Date Temp Pulse Resp B/P (MAP) Pulse Ox O2 O2 Flow FiO2 Time Delivery Rate 02/01/19 99.7 94 17 151/80 96 Room Air 15:17 (103) Intake and Output 01/31/19 01/31/19 02/01/19 1515:00 23:00 07:00 IntakeIntake Total 1100 ml 350 ml 850 ml OutputOutput Total 850 ml 850 ml 2100 ml BalanceBalance 250 ml -500 ml -1250 ml Exam Weakly palpable pedal pulses Absent protective sensations. Gangrene noted to the left hallux There is mild purulent drainage noted with the left hallux ulceration site measuring 0.3 x 0.4 x 0.3cm, ulcer probes to bone. Epidermalysis noted mild odor appreciated. Muscle strength 5/5 in all compartments of the foot Mild pain with palpation to the left hallux. Foot X-ray IMPRESSION: 1. Comminuted nondisplaced fracture involving the distal aspect of the distal phalanx of the left great toe without significant displacement. 2. Deformity to the distal left second metatarsal neck and head which may be a sequelae of old healed trauma. 3. Mild calcaneal spurring. 4. Soft tissue swelling involving the distal left great toe. Vascular calcification is noted. Foot MRI IMPRESSION: 1. Slightly comminuted essentially nondisplaced first distal tuft fracture with adjacent soft tissue swelling and possible skin defect. Questionable subtle cortical irregularity along the fracture margins may be related to the fracture though if there is a skin defect clinically early osteomyelitis is not entirely excluded. Continued clinical follow-up is advised and consider short-term follow-up MRI for further evaluation. 2. 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 3. No discrete drainable fluid collection. Results Result Diagram: 02/01/1962102/01/19621 Results 24hrs Laboratory Tests Test 01/31/19 20:50 02/01/19 02:11 02/01/19 06:22 02/01/19 07:55 Bedside Glucose 149 135 191 White Blood Count 9.1 Red Blood Count 4.34 L Hemoglobin 12.7 L Hematocrit 37.7 L Mean Corpuscular 86.9 Volume Mean Corpuscular 29.3 Hemoglobin Mean Corpuscular 33.7 Hemoglobin Concent Red Cell 11.7 Distribution Width Platelet Count 230 Mean Platelet Volume 10.5 H Immature 0.600 H Granulocytes % Neutrophils % 68.9 Lymphocytes % 19.8 Monocytes % 8.5 Eosinophils % 2.1 Basophils % 0.1 Nucleated Red Blood 0.0 Cells % Immature 0.050 H Granulocytes # Neutrophils # 6.3 Lymphocytes # 1.8 Monocytes # 0.8 Eosinophils # 0.2 Basophils # 0.0 Nucleated Red Blood 0.0 Cells # Sodium Level 138 Potassium Level 3.7 Chloride Level 103 Carbon Dioxide Level 28 Anion Gap 7 Blood Urea Nitrogen 11 Creatinine 0.62 Est Glomerular > 60 Filtrat Rate mL/min Glucose Level 213 Calcium Level 8.8 Phosphorus Level 3.8 Magnesium Level 1.8 Test 02/01/19 11:35 02/01/19 13:39 02/01/19 17:26 Bedside Glucose 218 219 Vancomycin Level 12.1 Trough Medications Medication Current Medications IV Flush (NS 3 ml) 3 ml PER PROTOCOL IV ; Start 01/29/19 at 14:00 Ondansetron HCl (Zofran Inj) 4 mg Q6H PRN IV NAUSEA/VOMITING; Start 01/29/19 at 14:00 Acetaminophen (Tylenol Tab) 650 mg Q6H PRN PO .PAIN 1-3 OR TEMP; Start 01/29/19 at 14:00 Oxycodone/ Acetaminophen (Percocet (5/ 325)) 1 tab Q6H PRN PO .PAINS 4-6 Last administered on 02/01/19at 08:04; Admin Dose 1 TAB; Start 01/29/19 at 14:00 Morphine Sulfate (morphine) 2 mg Q4H PRN IV .PAIN 7-10; Start 01/29/19 at 14:00 Vancomycin HCl (Vanco Iv Per Pharmacy) VANCOMYCIN PER PHARMACY PER PROTOCOL XX ; Start 01/29/19 at 14:00 Sodium Chloride 1,000 ml @ 50 mls/hr Q20H IV Last administered on 01/31/19at 18:45; Admin Dose 50 MLS/HR; Start 01/29/19 at 14:00 Diagnostic Test (Pha) (Accu-Chek) 1 ea 02 XX Last administered on 01/31/19at 02:12; Admin Dose 1 EA; Start 01/30/19 at 02:00 Insulin Aspart (Novolog Insulin Pen) NOVOLOG *MILD* ALGORITHM WITH MEALS BEDTIME SC Last administered on 02/01/19at 17:31; Admin Dose 2 UNIT; Start at 18:00 Miscellaneous Information 1 ea NOTE XX ; Start 01/29/19 at 15:00 Glucose (Glutose) 15 gm Q15M PRN PO DECREASED GLUCOSE; Start 01/29/19 at 15:00 Glucose (Glutose) 22.5 gm Q15M PRN PO DECREASED GLUCOSE; Start 01/29/19 at 15:00 Dextrose (D50w Syringe) 25 ml Q15M PRN IV DECREASED GLUCOSE; Start 01/29/19 at 15:00 Dextrose (D50w Syringe) 50 ml Q15M PRN IV DECREASED GLUCOSE; Start 01/29/19 at 15:00 Glucagon (Glucagen) 1 mg Q15M PRN IM DECREASED GLUCOSE; Start 01/29/19 at 15:00 Glucose (Glutose) 15 gm Q15M PRN BUCCAL DECREASED GLUCOSE; Start 01/29/19 at 15:00 Sodium Hypochlorite (Dakins Diluted ()) 1 applic DAILY TP Last administered on 02/01/19at 11:35; Admin Dose 1 APPLIC; Start 01/31/19 at 09:00 Insulin Aspart (Novolog Insulin Pen) 13 unit WITH MEALS SC Last administered on 02/01/19at 17:30; Admin Dose 13 UNIT; Start 01/31/19 at 11:30 Insulin Glargine (Lantus) 35 units DAILY@2000 SC Last administered on 01/31/19at 20:51; Admin Dose 35 UNITS; Start 01/31/19 at 20:00 Vancomycin HCl 1.25 gm/Sodium Chloride 250 ml @ 83.333 mls/ hr Q8H IVPB Last administered on 02/01/19at 14:21; Admin Dose 83.333 MLS/HR; Start 01/31/19 at 22:00 Ceftriaxone Sodium 50 ml @ 100 mls/hr Q24H IVPB Last administered on 02/01/19at 17:57; Admin Dose 100 MLS/HR; Start 02/01/19 at 14:30 BRENTON OBANDO DPM Feb 01, 2019 19:14
[2019-02-01 20:00] VITALS: BP 134/66; PULSE 89; RESP 18
[2019-02-01] MEDS: INSULIN GLARGINE [LANTus] (100 UNITS/ML) SYG SC SCH (20:16)
[2019-02-02] VITALS (12 sets, daily range): BP systolic 101–158; BP diastolic 57–84; PULSE 70–100; RESP 16–18
[2019-02-02] MEDS: morphine 2 MG INJ IV PRN (01:37)
[2019-02-02] MEDS: ACCU-CHEK XX SCH (02:00)
[2019-02-02] MEDS: VANCOMYCIN HCL 1.25 GM in SOD CHLORIDE 0.9% 250 ML IVPB SCH ×3 (06:26→23:07)
[2019-02-02] MEDS: INSULIN ASPART [NOVOLOG] 3 ML PEN SC SCH ×7 (07:35→20:24)
[2019-02-02] MEDS: OXYCODONE/ACETAMINOPHEN (5/325) TAB PO PRN ×2 (08:30→17:50)
[2019-02-02] MEDS: SOD CHLORIDE 0.9% 1,000 ML IV SCH ×4 (08:35→17:27)
[2019-02-02] MEDS: DAKINS 0.0125%(1/40) 473 ML SOLUTION TP SCH (08:36)
--- NOTE | 2019-02-02 11:26 | PN ---
Date/Time of Note Date/Time of Note DATE: 02/02/19 TIME: 11:26 Assessment/Plan VTE Prophylaxis Risk score (from Ns)>0 risk: 3 SCD applied (from Ns): Yes Pharmacological prophylaxis: NA/contraindicated Pharm contraindication: surgical contra Lines/Catheters IV [facility]from [facility] Peripheral IV Urinary Cath still in place: No Assessment/Plan Assessment/Plan 1. Sepsis secondary toe necrosis left toe- improving - Continue current antibiotics. ID on board and appreciate recommendations - remains afebrile with nl WBC 2. Left toe fracture and necrosis, cannot rule out osteomyelitis - Podiatry on board and appreciate recommendations - MRI notes multiple issues, cannot rule out osteomyelitis - continue wound care. Podiatry discussed possible amputation given gangrene of toe 3. Stenosis LLE - Vascular surgery on board and appreciate consultation. s/p BLE angiograms, angioplasty of Left [employer] proximal occlusion on 02/02 4. Uncontrolled diabetes mellitus - A1c 11.9 - will need better glucose control prior to discharge - will continue adjusting Lantus and Novolog - ISS and accuchecks 5. Degenerative spine disease - Chronic, monitor 6. Disposition - s/p Angioplasty today. Will continue current treatment pending further recommendations from Podiatry - will adjust insulin for better control Result Diagram: 02/02/19 0517 02/02/19 0517 Results 24hrs Laboratory Tests Test 02/01/19 11:35 02/01/19 13:39 02/01/19 17:26 02/01/19 20:12 Bedside Glucose 218 219 271 H Vancomycin Level 12.1 Trough Test 02/01/19 21:01 02/02/19 02:24 02/02/19 05:17 02/02/19 08:27 Bedside Glucose 287 H 211 268 H White Blood Count 8.8 Red Blood Count 4.36 L Hemoglobin 12.9 L Hematocrit 37.8 L Mean Corpuscular 86.7 Volume Mean Corpuscular 29.6 Hemoglobin Mean Corpuscular 34.1 Hemoglobin Concent Red Cell 11.5 Distribution Width Platelet Count 238 Mean Platelet Volume 10.3 Immature 0.600 H Granulocytes % Neutrophils % 65.1 Lymphocytes % 21.0 Monocytes % 10.5 Eosinophils % 2.6 Basophils % 0.2 Nucleated Red Blood 0.0 Cells % Immature 0.050 H Granulocytes # Neutrophils # 5.7 Lymphocytes # 1.9 Monocytes # 0.9 Eosinophils # 0.2 Basophils # 0.0 Nucleated Red Blood 0.0 Cells # Sodium Level 135 Potassium Level 3.9 Chloride Level 100 Carbon Dioxide Level 30 Anion Gap 5 Blood Urea Nitrogen 10 Creatinine 0.58 L Est Glomerular > 60 Filtrat Rate mL/min Glucose Level 229 H Calcium Level 9.1 Phosphorus Level 3.9 Magnesium Level 1.9 Subjective 24 Hr Interval Summary Free Text/Dictation Patient returned from angiogram and denies any pain. no acute overnight events. Asking to eat. Exam/Review of Systems Exam Vitals Vital Signs Date Temp Pulse Resp B/P (MAP) Pulse Ox O2 O2 Flow FiO2 Time Delivery Rate 02/02/19 98.1 80 18 143/67 99 Room Air 07:56 (92) Intake and Output 02/01/19 02/01/19 02/02/19 1515:00 23:00 07:00 IntakeIntake Total 600 ml 300 ml 600 ml OutputOutput Total 1925 ml 2200 ml BalanceBalance -1325 ml 300 ml -1600 ml Exam General: Patient is laying in bed and answers questions appropriately Neck: Supple, nontender, midline Respiratory: Clear to auscultation bilaterally. no wheezing or rhonchi Cardiovascular: regular rate and rhythm, no obvious murmurs Gastrointestinal: soft, non-tender to palpation, bowel sounds heard. Neurological: Moves all extremities spontaneously Skin: dressing left foot. no discharge or drainage Results Results 24hrs Laboratory Tests Test 02/01/19 11:35 02/01/19 13:39 02/01/19 17:26 02/01/19 20:12 Bedside Glucose 218 219 271 H Vancomycin Level 12.1 Trough Test 02/01/19 21:01 02/02/19 02:24 02/02/19 05:17 02/02/19 08:27 Bedside Glucose 287 H 211 268 H White Blood Count 8.8 Red Blood Count 4.36 L Hemoglobin 12.9 L Hematocrit 37.8 L Mean Corpuscular 86.7 Volume Mean Corpuscular 29.6 Hemoglobin Mean Corpuscular 34.1 Hemoglobin Concent Red Cell 11.5 Distribution Width Platelet Count 238 Mean Platelet Volume 10.3 Immature 0.600 H Granulocytes % Neutrophils % 65.1 Lymphocytes % 21.0 Monocytes % 10.5 Eosinophils % 2.6 Basophils % 0.2 Nucleated Red Blood 0.0 Cells % Immature 0.050 H Granulocytes # Neutrophils # 5.7 Lymphocytes # 1.9 Monocytes # 0.9 Eosinophils # 0.2 Basophils # 0.0 Nucleated Red Blood 0.0 Cells # Sodium Level 135 Potassium Level 3.9 Chloride Level 100 Carbon Dioxide Level 30 Anion Gap 5 Blood Urea Nitrogen 10 Creatinine 0.58 L Est Glomerular > 60 Filtrat Rate mL/min Glucose Level 229 H Calcium Level 9.1 Phosphorus Level 3.9 Magnesium Level 1.9 Medications Medication Current Medications IV Flush (NS 3 ml) 3 ml PER PROTOCOL IV ; Start 01/29/19 at 14:00 Ondansetron HCl (Zofran Inj) 4 mg Q6H PRN IV NAUSEA/VOMITING; Start 01/29/19 at 14:00 Acetaminophen (Tylenol Tab) 650 mg Q6H PRN PO .PAIN 1-3 OR TEMP; Start 01/29/19 at 14:00 Oxycodone/ Acetaminophen (Percocet (5/ 325)) 1 tab Q6H PRN PO .PAINS 4-6 Last administered on 02/02/19at 08:30; Admin Dose 1 TAB; Start 01/29/19 at 14:00 Morphine Sulfate (morphine) 2 mg Q4H PRN IV .PAIN 7-10 Last administered on 02/02/19at 01:37; Admin Dose 2 MG; Start 01/29/19 at 14:00 Vancomycin HCl (Vanco Iv Per Pharmacy) VANCOMYCIN PER PHARMACY PER PROTOCOL XX ; Start 01/29/19 at 14:00 Sodium Chloride 1,000 ml @ 50 mls/hr Q20H IV Last administered on 02/02/19at 08:35; Admin Dose 50 MLS/HR; Start 01/29/19 at 14:00 Diagnostic Test (Pha) (Accu-Chek) 1 ea 02 XX Last administered on 01/31/19at 02:12; Admin Dose 1 EA; Start 01/30/19 at 02:00 Insulin Aspart (Novolog Insulin Pen) NOVOLOG *MILD* ALGORITHM WITH MEALS BEDTIME SC Last administered on 02/02/19at 08:31; Admin Dose 4 UNIT; Start 01/29/19 at 18:00 Miscellaneous Information 1 ea NOTE XX ; Start 01/29/19 at 15:00 Glucose (Glutose) 15 gm Q15M PRN PO DECREASED GLUCOSE; Start 01/29/19 at 15:00 Glucose (Glutose) 22.5 gm Q15M PRN PO DECREASED GLUCOSE; Start 01/29/19 at 15:00 Dextrose (D50w Syringe) 25 ml Q15M PRN IV DECREASED GLUCOSE; Start 01/29/19 at 15:00 Dextrose (D50w Syringe) 50 ml Q15M PRN IV DECREASED GLUCOSE; Start 01/29/19 at 15:00 Glucagon (Glucagen) 1 mg Q15M PRN IM DECREASED GLUCOSE; Start 01/29/19 at 15:00 Glucose (Glutose) 15 gm Q15M PRN BUCCAL DECREASED GLUCOSE; Start 01/29/19 at 15:00 Sodium Hypochlorite (Dakins Diluted ()) 1 applic DAILY TP Last administered on 02/02/19at 08:36; Admin Dose 1 APPLIC; Start 01/31/19 at 09:00 Insulin Aspart (Novolog Insulin Pen) 13 unit WITH MEALS SC Last administered on 02/01/19at 17:30; Admin Dose 13 UNIT; Start 01/31/19 at 11:30 Insulin Glargine (Lantus) 35 units DAILY@2000 SC Last administered on 02/01/19at 20:16; Admin Dose 35 UNITS; Start 01/31/19 at 20:00 Vancomycin HCl 1.25 gm/Sodium Chloride 250 ml @ 83.333 mls/ hr Q8H IVPB Last administered on 02/02/19at 06:26; Admin Dose 83.333 MLS/HR; Start 01/31/19 at 22:00 Ceftriaxone Sodium 50 ml @ 100 mls/hr Q24H IVPB Last administered on 02/01/19at 17:57; Admin Dose 100 MLS/HR; Start 02/01/19 at 14:30 BARB ORDONEZ MD Feb 02, 2019 11:26
[2019-02-02] MEDS ORDERED: FENTAnyl 50 MCG/ML VIAL ONE (11:44)
[2019-02-02] MEDS ORDERED: MIDAZOLAM 1 MG/ML 2 ML INJ ONE (11:44)
[2019-02-02] MEDS ORDERED: HEPARIN 1000 UNITS/NS (A-LINE) 1,000 ML ONE (11:44)
[2019-02-02] MEDS ORDERED: IODIXANOL LOCM 100 ML BTL ONE (11:44)
[2019-02-02] MEDS ORDERED: LIDOCAINE 1% (MDV) 20 ML INJ ONE ×2 (11:44→12:59)
[2019-02-02] MEDS ORDERED: CLOPIDOGREL 300 MG TAB ONE (13:05)
--- NOTE | 2019-02-02 13:18 | SIPON ---
Date/Time of Note Date/Time of Note DATE: 02/02/19 TIME: 13:16 Operative Report Preoperative Diagnosis Left 1st toe gangrene Postoperative Diagnosis same Operation/Procedure Performed Aortogram, BLE angiograms, angioplasty of Left [employer] proximal occlusion Surgeon see signature line study assistant n/a Anesthesia: other (local) Estimated blood loss: minimal Transfusion Required none Specimen none Grafts/Implants none Complications none KEE WILL MD Feb 02, 2019 13:18
--- NOTE | 2019-02-02 14:20 | CONS ---
Assessment/Plan Assessment/Plan Hospital Course (Demo Recall) 1000 All noted, no acute events overnight Microbiology: Blood and urine cultures since admission negative, wound culture growing coag negative staph species, staph aureus, strep Antimicrobials: Vancomycin, Rocephin Physical examination: Well-developed obese elderly man who is alert in no distress. Head atraumatic normocephalic neck is supple. Chest rise symmetrical. Breath sounds clear. Heart: S1-S2. Abdomen soft bowel sounds present. Extremities with left foot dressing intact Assessment: 1. 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 Diabetes 3. Diabetic neuropathy 4. Peripheral arterial disease Plan: Remains stable, plan for angiogram, continue antibiotics, follow final cultures Consultation Date/Type/Reason Admit Date/Time Jan 29, 2019 at 14:15 Initial Consult Date Type of Consult id Requesting Provider: ALVARO MCCORD Date/Time of Note DATE: 02/02/19 TIME: 14:18 Exam/Review of Systems Exam Vitals Vital Signs Date Temp Pulse Resp B/P (MAP) Pulse Ox O2 O2 Flow FiO2 Time Delivery Rate 02/02/19 98.1 80 18 143/67 99 Room Air 07:56 (92) Intake and Output 02/01/19 02/01/19 02/02/19 1515:00 23:00 07:00 IntakeIntake Total 600 ml 300 ml 600 ml OutputOutput Total 1925 ml 2200 ml BalanceBalance -1325 ml 300 ml -1600 ml Results Result Diagram: 02/02/19 0517 02/02/19 0517 Results 24hrs Laboratory Tests Test 02/01/19 17:26 02/01/19 20:12 02/01/19 21:01 02/02/19 02:24 Bedside Glucose 219 271 H 287 H 211 Test 02/02/19 05:17 02/02/19 08:27 White Blood Count 8.8 Red Blood Count 4.36 L Hemoglobin 12.9 L Hematocrit 37.8 L Mean Corpuscular 86.7 Volume Mean Corpuscular 29.6 Hemoglobin Mean Corpuscular 34.1 Hemoglobin Concent Red Cell 11.5 Distribution Width Platelet Count 238 Mean Platelet Volume 10.3 Immature 0.600 H Granulocytes % Neutrophils % 65.1 Lymphocytes % 21.0 Monocytes % 10.5 Eosinophils % 2.6 Basophils % 0.2 Nucleated Red Blood 0.0 Cells % Immature 0.050 H Granulocytes # Neutrophils # 5.7 Lymphocytes # 1.9 Monocytes # 0.9 Eosinophils # 0.2 Basophils # 0.0 Nucleated Red Blood 0.0 Cells # Sodium Level 135 Potassium Level 3.9 Chloride Level 100 Carbon Dioxide Level 30 Anion Gap 5 Blood Urea Nitrogen 10 Creatinine 0.58 L Est Glomerular > 60 Filtrat Rate mL/min Glucose Level 229 H Calcium Level 9.1 Phosphorus Level 3.9 Magnesium Level 1.9 Bedside Glucose 268 H Medications Medication Current Medications IV Flush (NS 3 ml) 3 ml PER PROTOCOL IV ; Start 01/29/19 at 14:00 Ondansetron HCl (Zofran Inj) 4 mg Q6H PRN IV NAUSEA/VOMITING; Start 01/29/19 at 14:00 Acetaminophen (Tylenol Tab) 650 mg Q6H PRN PO .PAIN 1-3 OR TEMP; Start 01/29/19 at 14:00 Oxycodone/ Acetaminophen (Percocet (5/ 325)) 1 tab Q6H PRN PO .PAINS 4-6 Last a dministered on 02/02/19at 08:30; Admin Dose 1 TAB; Start 01/29/19 at 14:00 Morphine Sulfate (morphine) 2 mg Q4H PRN IV .PAIN 7-10 Last administered on 02/02/19at 01:37; Admin Dose 2 MG; Start 01/29/19 at 14:00 Vancomycin HCl (Vanco Iv Per Pharmacy) VANCOMYCIN PER PHARMACY PER PROTOCOL XX ; Start 01/29/19 at 14:00 Sodium Chloride 1,000 ml @ 50 mls/hr Q20H IV Last administered on 02/02/19at 08:35; Admin Dose 50 MLS/HR; Start 01/29/19 at 14:00 Diagnostic Test (Pha) (Accu-Chek) 1 ea 02 XX Last administered on 01/31/19at 02:12; Admin Dose 1 EA; Start 01/30/19 at 02:00 Insulin Aspart (Novolog Insulin Pen) NOVOLOG *MILD* ALGORITHM WITH MEALS BEDTIME SC Last administered on 02/02/19at 08:31; Admin Dose 4 UNIT; Start 01/29/19 at 18:00 Miscellaneous Information 1 ea NOTE XX ; Start 01/29/19 at 15:00 Glucose (Glutose) 15 gm Q15M PRN PO DECREASED GLUCOSE; Start 01/29/19 at 15:00 Glucose (Glutose) 22.5 gm Q15M PRN PO DECREASED GLUCOSE; Start 01/29/19 at 15:00 Dextrose (D50w Syringe) 25 ml Q15M PRN IV DECREASED GLUCOSE; Start 01/29/19 at 15:00 Dextrose (D50w Syringe) 50 ml Q15M PRN IV DECREASED GLUCOSE; Start 01/29/19 at 15:00 Glucagon (Glucagen) 1 mg Q15M PRN IM DECREASED GLUCOSE; Start 01/29/19 at 15:00 Glucose (Glutose) 15 gm Q15M PRN BUCCAL DECREASED GLUCOSE; Start 01/29/19 at 15:00 Sodium Hypochlorite (Dakins Diluted ()) 1 applic DAILY TP Last administered on 02/02/19at 08:36; Admin Dose 1 APPLIC; Start 01/31/19 at 09:00 Insulin Aspart (Novolog Insulin Pen) 13 unit WITH MEALS SC Last administered on 02/01/19at 17:30; Admin Dose 13 UNIT; Start 01/31/19 at 11:30 Insulin Glargine (Lantus) 35 units DAILY@2000 SC Last administered on 02/01/19at 20:16; Admin Dose 35 UNITS; Start 01/31/19 at 20:00 Vancomycin HCl 1.25 gm/Sodium Chloride 250 ml @ 83.333 mls/ hr Q8H IVPB Last administered on 02/02/19at 06:26; Admin Dose 83.333 MLS/HR; Start 01/31/19 at 22:00 Ceftriaxone Sodium 50 ml @ 100 mls/hr Q24H IVPB Last administered on 02/01/19at 17:57; Admin Dose 100 MLS/HR; Start 02/01/19 at 14:30 Sodium Chloride 1,000 ml @ 100 mls/hr Q10H IV ; Start 02/02/19 at 13:18; Stop 02/02/19 at 23:17 Clopidogrel Bisulfate (plaVIX) 75 mg DAILY PO ; Start 02/03/19 at 09:00 FROYLAN VASQUEZ NP Feb 02, 2019 14:19
[2019-02-02] MEDS: CEFTRIAXONE 1 GM/50 ML (PMX) 50 ML IVPB SCH (14:29)
--- NOTE | 2019-02-02 18:37 | OPR ---
DATE OF OPERATION: 02/02/2019 PREOPERATIVE DIAGNOSIS: Left foot 1st toe gangrene with infection. POSTOPERATIVE DIAGNOSIS: Left foot 1st toe gangrene with infection. PROCEDURES: Aortogram, bilateral lower extremity angiograms, angioplasty of the left proximal posterior tibial artery occlusions. SURGEON: Kee Polo MD ESTIMATED BLOOD LOSS: Minimal. ANESTHESIA: Local. SPECIMENS: None. COMPLICATIONS: None. PREOPERATIVE INDICATIONS: This is a 58-year-old gentleman with longstanding history of uncontrolled diabetes who now presented with left 1st toe gangrenous changes with infection of the potential trauma. Bilateral lower extremity arterial ultrasound demonstrated monophasic waveforms at the infrapopliteal tibial vessels on the left lower extremity. There were no significant hemodynamic occlusions or new stenotic lesions; however, this was suggestive of small vessel tibial disease. Therefore, the patient now presents for angiogram with possible intervention. The indications, risks and benefits of the procedure were discussed with the patient who understood and agreed to proceed. DESCRIPTION OF PROCEDURE: The patient was properly identified, brought to the angiography suite and placed in a supine position. The patient's bilateral groins were prepped and draped in usual sterile fashion. Ultrasound was used to evaluate the right groin which was noted to have a patent right common femoral artery with some mild calcification. Local anesthesia was injected into the skin and subcutaneous tissue overlying the access site. Micropuncture needle was used to access the right common femoral artery under direct ultrasound guidance. Micropuncture wire was then advanced under fluoroscopy. A micropuncture sheath was then placed. An 0.035 Bentson wire was then advanced into the infrarenal aorta under fluoroscopy and a 5-Tajik sheath was then advanced. A flush catheter was then advanced into the infrarenal aorta and an aortogram was then performed with findings as below. Using the combination of the Bentson wire and the flush catheter, the left iliac system was selected. However given the marked tortuosity, the catheter would not advance. Therefore, the Bentson wire was exchanged for a 0.035 floppy Glidewire, which was advanced into the left common femoral artery. The flush catheter was then exchanged for angled Glidecath. Once this was done, the angled Glidecath was advanced into the left external iliac artery and left lower extremity angiogram was performed with findings as below. Given the findings, intervention was planned. Due to the marked tortuosity in the aortoiliac system, the floppy Glidewire was readvanced into the Glidecath and both were advanced into the proximal popliteal artery. The wire was then exchanged for a [place] [employer] wire. The catheter was then removed and the 5-Tajik sheath was exchanged for a 6 x 90 cm long sheath. The patient was heparinized with 8000 units of intravenous heparin. The 0.035 floppy wire was used to select the posterior tibial artery takeoff and along with 0.035 [place] catheter, the proximal posterior tibial artery occlusion was crossed. Angiography confirmed the catheter was in the true lumen. A 3 x 48 mm balloon was then advanced and used for angioplasty at the site of the occlusion. Sustained insufflation was performed. Afterwards, completion angiography demonstrated rastafari of inline flow down to the foot. Given these findings, the procedure was terminated here. There was no evidence of distal embolization or any other arterial injuries. The sheath was walked back over the wire into the right iliac system. The wire was readvanced into the infrarenal aorta. Angiography of the right lower extremity was then performed with findings as below. This demonstrated that the access site was amenable to a closure device. Therefore, the sheath was exchanged for 6-Tajik Angio-Seal, which was deployed with good hemostasis. Manual compression was applied for additional hemostasis. The patient tolerated the procedure well. The patient also had a palpable left PT pulse at the conclusion of the procedure. He was transferred in good condition. DESCRIPTION OF ANGIOGRAPHIC FINDINGS: 1. Patent infrarenal abdominal aorta without any aneurysmal change. 2. Patent bilateral common iliac, internal and external iliac arteries. There was marked tortuosity and acute iliac bifurcation at the distal aorta. 3. Patent right common femoral and profunda femoral and proximal superficial femoral arteries with some calcification. 4. Patent left common femoral, profunda femoral and superficial femoral arteries with calcified malhotra, but no significant lesions. 5. Patent left popliteal artery. 6. Patent tibioperoneal trunk, but the proximal posterior tibial artery is completely occluded with reconstitution of the mid and distal portions. The posterior tibial artery continues to the foot at plantar as the main perfusion to the foot. 7. The peroneal artery is occluded. 8. The left anterior tibial artery is patent proximally with diffuse subtotal occlusion and total occlusion at the mid and distal portions. There is mild reconstitution of what appears to be a very small potential dorsalis pedis or lateral tarsal in the foot. 9. There was rastafari of inline flow via the posterior tibial artery into the plantar aspect to the foot post-intervention. Dictated By: KEE RUIZ/LIBERTY Conf#: [id number] DID#: [id number] CC: BARB ORDONEZ MD; ALVARO MCCORD MD;*EndCC* MTDD
[2019-02-02] MEDS: INSULIN GLARGINE [LANTus] (100 UNITS/ML) SYG SC SCH (20:23)
[2019-02-03 02:00] VITALS: BP 130/68; PULSE 78; RESP 17
[2019-02-03] MEDS: ACCU-CHEK XX SCH (02:00)
[2019-02-03] MEDS: morphine 2 MG INJ IV PRN (02:23)
[2019-02-03] MEDS: OXYCODONE/ACETAMINOPHEN (5/325) TAB PO PRN ×3 (06:18→18:54)
[2019-02-03] MEDS: VANCOMYCIN HCL 1.25 GM in SOD CHLORIDE 0.9% 250 ML IVPB SCH ×3 (06:19→21:46)
[2019-02-03 07:53] VITALS: BP 112/55; PULSE 75; RESP 18
[2019-02-03] MEDS: INSULIN ASPART [NOVOLOG] 3 ML PEN SC SCH ×7 (08:29→20:42)
[2019-02-03] MEDS: CLOPIDOGREL 75 MG TAB PO SCH (08:32)
[2019-02-03] MEDS: DAKINS 0.0125%(1/40) 473 ML SOLUTION TP SCH (08:32)
--- NOTE | 2019-02-03 13:00 | CONS ---
Assessment/Plan Assessment/Plan Hospital Course (Demo Recall) No events, looks comfortable, no fevers Microbiology: Blood and urine cultures since admission negative, wound culture growing coag negative staph species, staph aureus, strep Antimicrobials: Vancomycin, Rocephin Physical examination: Well-developed obese elderly man who is alert in no di stress. Head atraumatic normocephalic neck is supple. Chest rise symmetrical. Breath sounds clear. Heart: S1-S2. Abdomen soft bowel sounds present. Extremities with left foot dressing intact Assessment: 1. 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 Diabetes 3. Diabetic neuropathy 4. Peripheral arterial disease==> s/p Aortogram, bilateral lower extremity angiograms, angioplasty of the left proximal posterior tibial artery occlusions 02/02/19 Plan: Remains stable, dc Vanco, continue Rocephin, f/u podiatry rec-s==> waiting for demarcation Consultation Date/Type/Reason Admit Date/Time Jan 29, 2019 at 14:15 Initial Consult Date Type of Consult id Requesting Provider: ALVARO MCCORD Date/Time of Note DATE: 02/03/19 TIME: 12:57 Exam/Review of Systems Exam Vitals Vital Signs Date Temp Pulse Resp B/P (MAP) Pulse Ox O2 O2 Flow FiO2 Time Delivery Rate 02/03/19 98.3 75 18 112/55 99 Room Air 07:53 (74) Intake and Output 02/02/19 02/02/19 02/03/19 1515:00 23:00 07:00 IntakeIntake Total 350 ml 850 ml 1200 ml OutputOutput Total 900 ml 1100 ml BalanceBalance 350 ml -50 ml 100 ml Results Result Diagram: 02/02/19 0517 02/02/19 0517 Results 24hrs Laboratory Tests Test 02/02/19 14:38 02/02/19 17:12 02/02/19 20:19 02/03/19 02:19 Bedside Glucose 180 196 267 H 126 Test 02/03/19 08:01 02/03/19 12:27 Bedside Glucose 172 192 Medications Medication Current Medications IV Flush (NS 3 ml) 3 ml PER PROTOCOL IV ; Start 01/29/19 at 14:00 Ondansetron HCl (Zofran Inj) 4 mg Q6H PRN IV NAUSEA/VOMITING; Start 01/29/19 at 14:00 Acetaminophen (Tylenol Tab) 650 mg Q6H PRN PO .PAIN 1-3 OR TEMP; Start 01/29/19 at 14:00 Oxycodone/ Acetaminophen (Percocet (5/ 325)) 1 tab Q6H PRN PO .PAINS 4-6 Last administered on 02/03/19at 12:37; Admin Dose 1 TAB; Start 01/29/19 at 14:00 Morphine Sulfate (morphine) 2 mg Q4H PRN IV .PAIN 7-10 Last administered on 02/03/19at 02:23; Admin Dose 2 MG; Start 01/29/19 at 14:00 Vancomycin HCl (Vanco Iv Per Pharmacy) VANCOMYCIN PER PHARMACY PER PROTOCOL XX ; Start 01/29/19 at 14:00 Sodium Chloride 1,000 ml @ 50 mls/hr Q20H IV Last administered on 02/02/19at 08:35; Admin Dose 50 MLS/HR; Start 01/29/19 at 14:00 Diagnostic Test (Pha) (Accu-Chek) 1 ea 02 XX Last administered on 01/31/19at 02:12; Admin Dose 1 EA; Start 01/30/19 at 02:00 Insulin Aspart (Novolog Insulin Pen) NOVOLOG *MILD* ALGORITHM WITH MEALS BEDTIME SC Last administered on 02/03/19at 12:34; Admin Dose 2 UNIT; Start 01/29/19 at 18:00 Miscellaneous Information 1 ea NOTE XX ; Start 01/29/19 at 15:00 Glucose (Glutose) 15 gm Q15M PRN PO DECREASED GLUCOSE; Start 01/29/19 at 15:00 Glucose (Glutose) 22.5 gm Q15M PRN PO DECREASED GLUCOSE; Start 01/29/19 at 15:00 Dextrose (D50w Syringe) 25 ml Q15M PRN IV DECREASED GLUCOSE; Start 01/29/19 at 15:00 Dextrose (D50w Syringe) 50 ml Q15M PRN IV DECREASED GLUCOSE; Start 01/29/19 at 15:00 Glucagon (Glucagen) 1 mg Q15M PRN IM DECREASED GLUCOSE; Start 01/29/19 at 15:00 Glucose (Glutose) 15 gm Q15M PRN BUCCAL DECREASED GLUCOSE; Start 01/29/19 at 15:00 Sodium Hypochlorite (Dakins Diluted ()) 1 applic DAILY TP Last administered on 02/03/19 08:32; Admin Dose 1 APPLIC; Start 01/31/19 at 09:00 Vancomycin HCl 1.25 gm/Sodium Chloride 250 ml @ 83.333 mls/ hr Q8H IVPB Last administered on 02/03/19at 06:19; Admin Dose 83.333 MLS/HR; Start 01/31/19 at 22:00 Ceftriaxone Sodium 50 ml @ 100 mls/hr Q24H IVPB Last administered on 02/02/19at 14:29; Admin Dose 100 MLS/HR; Start 02/01/19 at 14:30 Clopidogrel Bisulfate (plaVIX) 75 mg DAILY PO Last administered on 02/03/19 08:32; Admin Dose 75 MG; Start 02/03/19 at 09:00 Miscellaneous Information (*Rx Drug Level Order Reminder*) 1 1300 ONCE XX ; Start 02/03/19 at 13:00; Stop 02/03/19 at 13:01 Insulin Aspart (Novolog Insulin Pen) 15 unit WITH MEALS SC Last administered on 02/03/19at 12:32; Admin Dose 15 UNIT; Start 02/02/19 at 17:35 Insulin Glargine (Lantus) 40 units DAILY@2000 SC Last administered on 02/02/19at 20:23; Admin Dose 40 UNITS; Start 02/02/19 at 20:00 FROYLAN VASQUEZ NP Feb 03, 2019 13:00
[2019-02-03] MEDS: SOD CHLORIDE 0.9% 1,000 ML IV SCH (14:00)
[2019-02-03] MEDS: CEFTRIAXONE 1 GM/50 ML (PMX) 50 ML IVPB SCH (14:10)
[2019-02-03 14:13] VITALS: BP 112/60; PULSE 99; RESP 18
--- NOTE | 2019-02-03 15:59 | PN ---
Date/Time of Note Date/Time of Note DATE: 02/03/19 TIME: 15:39 Assessment/Plan VTE Prophylaxis Risk score (from Ns)>0 risk: 4 SCD applied (from Ns): Yes Pharmacological prophylaxis: NA/contraindicated Pharm contraindication: surgical contra Lines/Catheters IV Catheter Type (from Nrsg): Peripheral IV Urinary Cath still in place: No Assessment/Plan Assessment/Plan 1. Sepsis secondary toe necrosis left toe- resolved - Continue current antibiotics. ID on board and appreciate recommendations - remains afebrile with nl WBC 2. Left toe fracture and necrosis, cannot rule out osteomyelitis - Podiatry on board and appreciate recommendations. Awaiting further recommendations for plan of care - MRI notes multiple issues, cannot rule out osteomyelitis - continue wound care. Podiatry discussed possible amputation given gangrene of toe 3. Stenosis LLE - Vascular surgery on board and appreciate consultation. s/p BLE angiograms, angioplasty of Left RN MANAGED CARE proximal occlusion on 02/02 4. Uncontrolled diabetes mellitus - A1c 11.9 - will need better glucose control prior to discharge - will continue adjusting Lantus and Novolog - ISS and accuchecks 5. Degenerative spine disease - Chronic, monitor 6. Disposition - Will continue current treatment pending further recommendations from Podiatry Result Diagram: 02/02/19 0517 02/02/19 0517 Results 24hrs Laboratory Tests Test 02/02/19 17:12 02/02/19 20:19 02/03/19 02:19 02/03/19 08:01 Bedside Glucose 196 267 H 126 172 Test 02/03/19 12:27 Bedside Glucose 192 Subjective 24 Hr Interval Summary Free Text/Dictation Patient doing well and denies any pain. Discussed possibility of needing an amputation and patient was concerned. No acute overnight events. Exam/Review of Systems Exam Vitals Vital Signs Date Temp Pulse Resp B/P (MAP) Pulse Ox O2 O2 Flow FiO2 Time Delivery Rate 02/03/19 98.0 99 18 112/60 98 Room Air 14:13 (77) Intake and Output 02/02/19 02/02/19 02/03/19 1515:00 23:00 07:00 IntakeIntake Total 350 ml 850 ml 1200 ml OutputOutput Total 900 ml 1100 ml BalanceBalance 350 ml -50 ml 100 ml Exam General: Patient is laying in bed and answers questions appropriately Neck: Supple, nontender, midline Respiratory: Clear to auscultation bilaterally. no wheezing or rhonchi Cardiovascular: regular rate and rhythm, no obvious murmurs Gastrointestinal: soft, non-tender to palpation, bowel sounds heard. Neurological: Moves all extremities spontaneously Skin: dressing left foot. no discharge or drainage Results Results 24hrs Laboratory Tests Test 02/02/19 17:12 02/02/19 20:19 02/03/19 02:19 02/03/19 08:01 Bedside Glucose 196 267 H 126 172 Test 02/03/19 12:27 Bedside Glucose 192 Medications Medication Current Medications IV Flush (NS 3 ml) 3 ml PER PROTOCOL IV ; Start 01/29/19 at 14:00 Ondansetron HCl (Zofran Inj) 4 mg Q6H PRN IV NAUSEA/VOMITING; Start 01/29/19 at 14:00 Acetaminophen (Tylenol Tab) 650 mg Q6H PRN PO .PAIN 1-3 OR TEMP; Start 01/29/19 at 14:00 Oxycodone/ Acetaminophen (Percocet (5/ 325)) 1 tab Q6H PRN PO .PAINS 4-6 Last administered on 02/03/19at 12:37; Admin Dose 1 TAB; Start 01/29/19 at 14:00 Morphine Sulfate (morphine) 2 mg Q4H PRN IV .PAIN 7-10 Last administered on 02/03/19at 02:23; Admin Dose 2 MG; Start 01/29/19 at 14:00 Vancomycin HCl (Vanco Iv Per Pharmacy) VANCOMYCIN PER PHARMACY PER PROTOCOL XX ; Start 01/29/19 at 14:00 Sodium Chloride 1,000 ml @ 50 mls/hr Q20H IV Last administered on 02/02/19at 08:35; Admin Dose 50 MLS/HR; Start 01/29/19 at 14:00 Diagnostic Test (Pha) (Accu-Chek) 1 ea 02 XX Last administered on 01/31/19at 02:12; Admin Dose 1 EA; Start 01/30/19 at 02:00 Insulin Aspart (Novolog Insulin Pen) NOVOLOG *MILD* ALGORITHM WITH MEALS BEDTIME SC Last administered on 02/03/19at 12:34; Admin Dose 2 UNIT; Start 01/29/19 at 18:00 Miscellaneous Information 1 ea NOTE XX ; Start 01/29/19 at 15:00 Glucose (Glutose) 15 gm Q15M PRN PO DECREASED GLUCOSE; Start 01/29/19 at 15:00 Glucose (Glutose) 22.5 gm Q15M PRN PO DECREASED GLUCOSE; Start 01/29/19 at 15:00 Dextrose (D50w Syringe) 25 ml Q15M PRN IV DECREASED GLUCOSE; Start 01/29/19 at 15:00 Dextrose (D50w Syringe) 50 ml Q15M PRN IV DECREASED GLUCOSE; Start 01/29/19 at 15:00 Glucagon (Glucagen) 1 mg Q15M PRN IM DECREASED GLUCOSE; Start 01/29/19 at 15:00 Glucose (Glutose) 15 gm Q15M PRN BUCCAL DECREASED GLUCOSE; Start 01/29/19 at 15:00 Sodium Hypochlorite (Dakins Diluted ()) 1 applic DAILY TP Last administered on 02/03/19at 08:32; Admin Dose 1 APPLIC; Start 01/31/19 at 09:00 Vancomycin HCl 1.25 gm/Sodium Chloride 250 ml @ 83.333 mls/ hr Q8H IVPB Last administered on 02/03/19at 06:19; Admin Dose 83.333 MLS/HR; Start 01/31/19 at 22:00 Ceftriaxone Sodium 50 ml @ 100 mls/hr Q24H IVPB Last administered on 02/03/19at 14:10; Admin Dose 100 MLS/HR; Start 02/01/19 at 14:30 Clopidogrel Bisulfate (plaVIX) 75 mg DAILY PO Last administered on 02/03/19at 08:32; Admin Dose 75 MG; Start 02/03/19 at 09:00 Insulin Aspart (Novolog Insulin Pen) 15 unit WITH MEALS SC Last administered on 02/03/19at 12:32; Admin Dose 15 UNIT; Start 02/02/19 at 17:35 Insulin Glargine (Lantus) 40 units DAILY@2000 SC Last administered on 02/02/19at 20:23; Admin Dose 40 UNITS; Start 02/02/19 at 20:00 BARB ORDONEZ MD Feb 03, 2019 15:56
[2019-02-03 20:03] VITALS: BP 129/58; PULSE 92; RESP 18
[2019-02-03] MEDS: INSULIN GLARGINE [LANTus] (100 UNITS/ML) SYG SC SCH (20:42)
[2019-02-03] MEDS ORDERED: PIPER-TAZO 3.375 GM IV (PMX) 0 ML ONE (21:40)
[2019-02-04] MEDS: ACCU-CHEK XX SCH (02:00)
[2019-02-04 02:16] VITALS: BP 116/63; PULSE 80; RESP 20
[2019-02-04] MEDS: VANCOMYCIN HCL 1.25 GM in SOD CHLORIDE 0.9% 250 ML IVPB SCH (06:08)
[2019-02-04] MEDS: OXYCODONE/ACETAMINOPHEN (5/325) TAB PO PRN ×3 (06:16→22:40)
[2019-02-04 08:11] VITALS: BP 112/56; PULSE 63; RESP 19
[2019-02-04] MEDS: INSULIN ASPART [NOVOLOG] 3 ML PEN SC SCH ×7 (08:15→20:35)
[2019-02-04] MEDS: CLOPIDOGREL 75 MG TAB PO SCH (08:17)
[2019-02-04] MEDS: SOD CHLORIDE 0.9% 1,000 ML IV SCH ×2 (09:59→20:47)
--- NOTE | 2019-02-04 11:45 | CONS ---
Assessment/Plan Assessment/Plan Hospital Course (Demo Recall) All noted. No acute events, no fevers Microbiology: Blood and urine cultures since admission negative, wound culture growing coag negative staph species, staph aureus, strep Antimicrobials: Rocephin Physical examination: Well-developed obese elderly man who is alert in no distress. Head atraumatic normocephalic neck is supple. Chest rise symmetrical. Breath sounds clear. Heart: S1-S2. Abdomen soft bowel sounds present. Extremities with left foot dressing intact Assessment: 1. 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 Diabetes 3. Diabetic neuropathy 4. Peripheral arterial disease==> s/p Aortogram, bilateral lower extremity angiograms, angioplasty of the left proximal posterior tibial artery occlusions 02/02/19 Plan: Remains stable, recommend to keep on IV abx for 4 + more weeks, pt will have another surgical intervention in 2-[address] Perez Consultation Date/Type/Reason Admit Date/Time Jan 29, 2019 at 14:15 Initial Consult Date Type of Consult id Requesting Provider: ALVARO MCCORD Date/Time of Note DATE: 02/04/19 TIME: 11:43 Exam/Review of Systems Exam Vitals Vital Signs Date Temp Pulse Resp B/P (MAP) Pulse Ox O2 O2 Flow FiO2 Time Delivery Rate 02/04/19 97.8 63 19 112/56 100 08:11 (74) 02/04/19 Room Air 02:16 Intake and Output 02/03/19 02/03/19 02/04/19 1515:00 23:00 07:00 IntakeIntake Total 350 ml 1850 ml 1150 ml OutputOutput Total 2400 ml 2600 ml BalanceBalance 350 ml -550 ml -1450 ml Results Result Diagram: 02/02/19 0517 02/02/19 0517 Results 24hrs Laboratory Tests Test 02/03/19 12:27 02/03/19 14:16 02/03/19 17:41 02/03/19 20:38 Bedside Glucose 192 238 H 188 Vancomycin Level 9.2 L Trough Test 02/04/19 02:06 02/04/19 07:59 Bedside Glucose 203 234 H Medications Medication Current Medications IV Flush (NS 3 ml) 3 ml PER PROTOCOL IV ; Start 01/29/19 at 14:00 Ondansetron HCl (Zofran Inj) 4 mg Q6H PRN IV NAUSEA/VOMITING; Start 01/29/19 at 14:00 Acetaminophen (Tylenol Tab) 650 mg Q6H PRN PO .PAIN 1-3 OR TEMP; Start 01/29/19 at 14:00 Oxycodone/ Acetaminophen (Percocet (5/ 325)) 1 tab Q6H PRN PO .PAINS 4-6 Last administered on 02/04/19at 06:16; Admin Dose 1 TAB; Start 01/29/19 at 14:00 Morphine Sulfate (morphine) 2 mg Q4H PRN IV .PAIN 7-10 Last administered on 02/03/19at 02:23; Admin Dose 2 MG; Start 01/29/19 at 14:00 Sodium Chloride 1,000 ml @ 50 mls/hr Q20H IV Last administered on 02/02/19at 08:35; Admin Dose 50 MLS/HR; Start 01/29/19 at 14:00 Diagnostic Test (Pha) (Accu-Chek) 1 ea 02 XX Last administered on 01/31/19at 02:12; Admin Dose 1 EA; Start 01/30/19 at 02:00 Insulin Aspart (Novolog Insulin Pen) NOVOLOG *MILD* ALGORITHM WITH MEALS BEDTIME SC Last administered on 02/04/19at 08:16; Admin Dose 3 UNIT; Start 01/29/19 at 18:00 Miscellaneous Information 1 ea NOTE XX ; Start 01/29/19 at 15:00 Glucose (Glutose) 15 gm Q15M PRN PO DECREASED GLUCOSE; Start 01/29/19 at 15:00 Glucose (Glutose) 22.5 gm Q15M PRN PO DECREASED GLUCOSE; Start 01/29/19 at 15:00 Dextrose (D50w Syringe) 25 ml Q15M PRN IV DECREASED GLUCOSE; Start 01/29/19 at 15:00 Dextrose (D50w Syringe) 50 ml Q15M PRN IV DECREASED GLUCOSE; Start 01/29/19 at 15:00 Glucagon (Glucagen) 1 mg Q15M PRN IM DECREASED GLUCOSE; Start 01/29/19 at 15:00 Glucose (Glutose) 15 gm Q15M PRN BUCCAL DECREASED GLUCOSE; Start 01/29/19 at 15:00 Sodium Hypochlorite (Dakins Diluted ()) 1 applic DAILY TP Last administered on 02/03/19 08:32; Admin Dose 1 APPLIC; Start 01/31/19 at 09:00 Ceftriaxone Sodium 50 ml @ 100 mls/hr Q24H IVPB Last administered on 02/03/19 14:10; Admin Dose 100 MLS/HR; Start 02/01/19 at 14:30 Clopidogrel Bisulfate (plaVIX) 75 mg DAILY PO Last administered on 02/04/19 08:17; Admin Dose 75 MG; Start 02/03/19 at 09:00 Insulin Aspart (Novolog Insulin Pen) 15 unit WITH MEALS SC Last administered on 02/04/19 08:15; Admin Dose 15 UNIT; Start 02/02/19 at 17:35 Insulin Glargine (Lantus) 40 units DAILY@2000 SC Last administered on 02/03/19 20:42; Admin Dose 40 UNITS; Start 02/02/19 at 20:00 FROYLAN VASQUEZ NP Feb 04, 2019 11:45
[2019-02-04] MEDS ORDERED: LIDOCAINE 1% (MPF) 5 ML VIAL SC ONE (12:00)
--- NOTE | 2019-02-04 14:13 | PN ---
Date/Time of Note Date/Time of Note DATE: 02/04/19 TIME: 14:08 Assessment/Plan VTE Prophylaxis Risk score (from Nsg)>0 risk: 4 SCD applied (from Nsg): Yes Pharmacological prophylaxis: NA/contraindicated Pharm contraindication: low risk/ambulating Lines/Catheters IV Catheter Type (from Nrsg): Peripheral IV Urinary Cath still in place: No Assessment/Plan Assessment/Plan 1. Sepsis secondary toe necrosis left toe- resolved - Continue current antibiotics. ID on board and appreciate recommendations - remains afebrile with nl WBC 2. Left toe fracture and necrosis, cannot rule out osteomyelitis - Podiatry on board and appreciate recommendations. Okay for discharge and will plan for outpatient surgical intervention in 2-3 weeks. Will continue IV antibiotics for at least 4 weeks - MRI notes multiple issues, cannot rule out osteomyelitis - continue wound care. 3. Stenosis LLE - Vascular surgery on board and appreciate consultation. 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 Uncontrolled diabetes mellitus - A1c 11.9 - will add Metformin and continue Lantus and Novolog - ISS and accuchecks 5. Degenerative spine disease - Chronic, monitor 6. Disposition - consulted for HHIV anbiotics. PICC line insertion ordered. Once all arrangements finalized, will d/c home Result Diagram: 02/02/19 0517 02/02/19 0517 Results 24hrs Laboratory Tests Test 02/03/19 14:16 02/03/19 17:41 02/03/19 20:38 02/04/19 02:06 Vancomycin Level 9.2 L Trough Bedside Glucose 238 H 188 203 Test 02/04/19 07:59 02/04/19 11:55 Bedside Glucose 234 H 227 H Subjective 24 Hr Interval Summary Free Text/Dictation Patient states pain is controlled with PO medications. Discussed with patient he will need to continue halfway antibiotics and agreeable. Exam/Review of Systems Exam Vitals Vital Signs Date Temp Pulse Resp B/P (MAP) Pulse Ox O2 O2 Flow FiO2 Time Delivery Rate 02/04/19 97.8 63 19 112/56 100 08:11 (74) 02/04/19 Room Air 02:16 Intake and Output 02/03/19 02/03/19 02/04/19 1515:00 23:00 07:00 IntakeIntake Total 350 ml 1850 ml 1150 ml OutputOutput Total 2400 ml 2600 ml BalanceBalance 350 ml -550 ml -1450 ml Exam General: Patient is laying in bed and answers questions appropriately Neck: Supple, nontender, midline Respiratory: Clear to auscultation bilaterally. no wheezing or rhonchi Cardiovascular: regular rate and rhythm, no obvious murmurs Gastrointestinal: soft, non-tender to palpation, bowel sounds heard. Ext: Moves all extremities spontaneously Skin: dressing left foot, CDI Results Results 24hrs Laboratory Tests Test 02/03/19 14:16 02/03/19 17:41 02/03/19 20:38 02/04/19 02:06 Vancomycin Level 9.2 L Trough Bedside Glucose 238 H 188 203 Test 02/04/19 07:59 02/04/19 11:55 Bedside Glucose 234 H 227 H Medications Medication Current Medications IV Flush (NS 3 ml) 3 ml PER PROTOCOL IV ; Start 01/29/19 at 14:00 Ondansetron HCl (Zofran Inj) 4 mg Q6H PRN IV NAUSEA/VOMITING; Start 01/29/19 at 14:00 Acetaminophen (Tylenol Tab) 650 mg Q6H PRN PO .PAIN 1-3 OR TEMP; Start 01/29/19 at 14:00 Oxycodone/ Acetaminophen (Percocet (5/ 325)) 1 tab Q6H PRN PO .PAINS 4-6 Last administered on 02/04/19at 06:16; Admin Dose 1 TAB; Start 01/29/19 at 14:00 Morphine Sulfate (morphine) 2 mg Q4H PRN IV .PAIN 7-10 Last administered on 02/03/19at 02:23; Admin Dose 2 MG; Start 01/29/19 at 14:00 Sodium Chloride 1,000 ml @ 50 mls/hr Q20H IV Last administered on 02/02/19at 08:35; Admin Dose 50 MLS/HR; Start 01/29/19 at 14:00 Diagnostic Test (Pha) (Accu-Chek) 1 ea 02 XX Last administered on 01/31/19at 02:12; Admin Dose 1 EA; Start 01/30/19 at 02:00 Insulin Aspart (Novolog Insulin Pen) NOVOLOG *MILD* ALGORITHM WITH MEALS BEDTIME SC Last administered on 02/04/19at 12:10; Admin Dose 3 UNIT; Start 01/29/19 at 18:00 Miscellaneous Information 1 ea NOTE XX ; Start 01/29/19 at 15:00 Glucose (Glutose) 15 gm Q15M PRN PO DECREASED GLUCOSE; Start 01/29/19 at 15:00 Glucose (Glutose) 22.5 gm Q15M PRN PO DECREASED GLUCOSE; Start 01/29/19 at 15:00 Dextrose (D50w Syringe) 25 ml Q15M PRN IV DECREASED GLUCOSE; Start 01/29/19 at 15:00 Dextrose (D50w Syringe) 50 ml Q15M PRN IV DECREASED GLUCOSE; Start 01/29/19 at 15:00 Glucagon (Glucagen) 1 mg Q15M PRN IM DECREASED GLUCOSE; Start 01/29/19 at 15:00 Glucose (Glutose) 15 gm Q15M PRN BUCCAL DECREASED GLUCOSE; Start 01/29/19 at 15:00 Sodium Hypochlorite (Dakins Diluted (40)) 1 applic DAILY TP Last administered on 02/03/19at 08:32; Admin Dose 1 APPLIC; Start 01/31/19 at 09:00 Ceftriaxone Sodium 50 ml @ 100 mls/hr Q24H IVPB Last administered on 02/03/19at 14:10; Admin Dose 100 MLS/HR; Start 02/01/19 at 14:30 Clopidogrel Bisulfate (plaVIX) 75 mg DAILY PO Last administered on 02/04/19at 08:17; Admin Dose 75 MG; Start 02/03/19 at 09:00 Insulin Aspart (Novolog Insulin Pen) 15 unit WITH MEALS SC Last administered on 02/04/19at 12:10; Admin Dose 15 UNIT; Start 02/02/19 at 17:35 Insulin Glargine (Lantus) 40 units DAILY@2000 SC Last administered on 02/03/19at 20:42; Admin Dose 40 UNITS; Start 02/02/19 at 20:00 BARB ORDONEZ MD Feb 04, 2019 14:13
[2019-02-04] MEDS: CEFTRIAXONE 1 GM/50 ML (PMX) 50 ML IVPB SCH (14:33)
[2019-02-04 14:42] VITALS: BP 103/57; PULSE 89; RESP 19
[2019-02-04] MEDS: DAKINS 0.0125%(1/40) 473 ML SOLUTION TP SCH (17:58)
[2019-02-04] MEDS: metFORMIN 500 MG TAB PO SCH (18:01)
[2019-02-04 20:25] VITALS: BP 121/65; PULSE 99; RESP 20
[2019-02-04] MEDS: INSULIN GLARGINE [LANTus] (100 UNITS/ML) SYG SC SCH (20:35)
[2019-02-05] MEDS: ACCU-CHEK XX SCH (01:28)
[2019-02-05 02:46] VITALS: BP 94/58; PULSE 76; RESP 18
[2019-02-05 08:11] VITALS: BP 101/53; PULSE 80; RESP 18
[2019-02-05] MEDS: CLOPIDOGREL 75 MG TAB PO SCH (08:11)
[2019-02-05] MEDS: OXYCODONE/ACETAMINOPHEN (5/325) TAB PO PRN (08:11)
[2019-02-05] MEDS: metFORMIN 500 MG TAB PO SCH (08:11)
[2019-02-05] MEDS: INSULIN ASPART [NOVOLOG] 3 ML PEN SC SCH ×4 (08:17→12:09)
[2019-02-05] MEDS: DAKINS 0.0125%(1/40) 473 ML SOLUTION TP SCH (08:19)
--- NOTE | 2019-02-05 10:57 | PN ---
Date/Time of Note Date/Time of Note DATE: 02/05/19 TIME: 10:54 Assessment/Plan VTE Prophylaxis Risk score (from Ns)>0 risk: 4 SCD applied (from Ns): Yes Pharmacological prophylaxis: NA/contraindicated Pharm contraindication: low risk/ambulating Lines/Catheters IV Catheter Type (from Nrsg): PICC Line Central line still needed: Yes Urinary Cath still in place: No Assessment/Plan Assessment/Plan 1. Sepsis secondary toe necrosis left toe- resolved - Continue current antibiotics. ID on board and appreciate recommendations - remains afebrile with nl WBC 2. Left toe fracture and necrosis, cannot rule out osteomyelitis - Podiatry on board and appreciate recommendations. Okay for discharge and will plan for outpatient surgical intervention in 2-3 weeks. Will continue IV antibiotics for at least 4-6 weeks - MRI notes multiple issues, cannot rule out osteomyelitis - continue wound care. 3. Stenosis LLE - Vascular surgery on board and appreciate consultation. 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 Uncontrolled diabetes mellitus - A1c 11.9 - continue current regime - ISS and accuchecks 5. Degenerative spine disease - Chronic, monitor 6. Disposition - Medically stable for discharge home Result Diagram: 02/02/19 0517 02/02/19 0517 Results 24hrs Laboratory Tests Test 02/04/19 11:55 02/04/19 17:34 02/04/19 20:32 02/04/19 22:45 Bedside Glucose 227 H 195 262 H 185 Test 02/05/19 01:28 02/05/19 08:09 Bedside Glucose 170 143 Subjective 24 Hr Interval Summary Free Text/Dictation Patient denies any acute issues and in no acute distress. No overnight events. Exam/Review of Systems Exam Vitals Vital Signs Date Temp Pulse Resp B/P (MAP) Pulse Ox O2 O2 Flow FiO2 Time Delivery Rate 02/05/19 98.2 80 18 101/53 100 Room Air 08:11 (69) Intake and Output 02/04/19 02/04/19 02/05/19 1515:00 23:00 07:00 IntakeIntake Total 730 ml 890 ml 710 ml OutputOutput Total 1000 ml 2300 ml BalanceBalance -270 ml 890 ml -1590 ml Exam General: Patient is laying in bed and answers questions appropriately Neck: Supple, nontender, midline Respiratory: Clear to auscultation bilaterally. no wheezing or rhonchi Cardiovascular: regular rate and rhythm, no obvious murmurs Gastrointestinal: soft, non-tender to palpation, bowel sounds heard. Ext: Moves all extremities spontaneously Skin: dressing left foot, CDI Results Results 24hrs Laboratory Tests Test 02/04/19 11:55 02/04/19 17:34 02/04/19 20:32 02/04/19 22:45 Bedside Glucose 227 H 195 262 H 185 Test 02/05/19 01:28 02/05/19 08:09 Bedside Glucose 170 143 Medications Medication Current Medications IV Flush (NS 3 ml) 3 ml PER PROTOCOL IV ; Start 01/29/19 at 14:00 Ondansetron HCl (Zofran Inj) 4 mg Q6H PRN IV NAUSEA/VOMITING; Start 01/29/19 at 14:00 Acetaminophen (Tylenol Tab) 650 mg Q6H PRN PO .PAIN 1-3 OR TEMP; Start 01/29/19 at 14:00 Oxycodone/ Acetaminophen (Percocet (5/ 325)) 1 tab Q6H PRN PO .PAINS 4-6 Last administered on 02/05/19at 08:11; Admin Dose 1 TAB; Start 01/29/19 at 14:00 Morphine Sulfate (morphine) 2 mg Q4H PRN IV .PAIN 7-10 Last administered on 02/03/19at 02:23; Admin Dose 2 MG; Start 01/29/19 at 14:00 Sodium Chloride 1,000 ml @ 50 mls/hr Q20H IV Last administered on 02/04/19at 20:47; Admin Dose 50 MLS/HR; Start 01/29/19 at 14:00 Diagnostic Test (Pha) (Accu-Chek) 1 ea 02 XX Last administered on 01/31/19at 02:12; Admin Dose 1 EA; Start 01/30/19 at 02:00 Insulin Aspart (Novolog Insulin Pen) NOVOLOG *MILD* ALGORITHM WITH MEALS BEDTIME SC Last administered on 02/05/19at 08:18; Admin Dose 1 UNIT; Start 01/29/19 at 18:00 Miscellaneous Information 1 ea NOTE XX ; Start 01/29/19 at 15:00 Glucose (Glutose) 15 gm Q15M PRN PO DECREASED GLUCOSE; Start 01/29/19 at 15:00 Glucose (Glutose) 22.5 gm Q15M PRN PO DECREASED GLUCOSE; Start 01/29/19 at 15:00 Dextrose (D50w Syringe) 25 ml Q15M PRN IV DECREASED GLUCOSE; Start 01/29/19 at 15:00 Dextrose (D50w Syringe) 50 ml Q15M PRN IV DECREASED GLUCOSE; Start 01/29/19 at 15:00 Glucagon (Glucagen) 1 mg Q15M PRN IM DECREASED GLUCOSE; Start 01/29/19 at 15:00 Glucose (Glutose) 15 gm Q15M PRN BUCCAL DECREASED GLUCOSE; Start 01/29/19 at 15:00 Sodium Hypochlorite (Dakins Diluted ()) 1 applic DAILY TP Last administered on 02/05/19 08:19; Admin Dose 1 APPLIC; Start 01/31/19 at 09:00 Ceftriaxone Sodium 50 ml @ 100 mls/hr Q24H IVPB Last administered on 02/04/19at 14:33; Admin Dose 100 MLS/HR; Start 02/01/19 at 14:30 Clopidogrel Bisulfate (plaVIX) 75 mg DAILY PO Last administered on 02/05/19 08:11; Admin Dose 75 MG; Start 02/03/19 at 09:00 Insulin Aspart (Novolog Insulin Pen) 15 unit WITH MEALS SC Last administered on 02/05/19 08:17; Admin Dose 15 UNIT; Start 02/02/19 at 17:35 Insulin Glargine (Lantus) 40 units DAILY@2000 SC Last administered on 02/04/19at 20:35; Admin Dose 40 UNITS; Start 02/02/19 at 20:00 Metformin HCl (Glucophage) 500 mg BID WITH MEALS PO Last administered on 02/05/19 08:11; Admin Dose 500 MG; Start 02/04/19 at 18:05 IV Flush (NS 10 ml) 10 ml PRN PRN IV FLUSH LINE; Start 02/04/19 at 18:00 BARB ORDONEZ MD Feb 05, 2019 10:57
[2019-02-05] MEDS ORDERED: INSU100I33 SC (11:08)
[2019-02-05] MEDS ORDERED: INSU100I12 SQ (11:08)
[2019-02-05] MEDS ORDERED: NEED-135 MC (11:08)
[2019-02-05] MEDS ORDERED: CLOP75TA28 PO (11:08)
[2019-02-05] MEDS ORDERED: METF-849 PO (11:08)
[2019-02-05] MEDS ORDERED: OXYC-438 PO (11:08)
--- NOTE | 2019-02-05 11:23 | PDOCDIS ---
Discharge Instructions DIAGNOSIS Discharge Diagnosis 1. Sepsis secondary toe necrosis left toe- resolved 2. Left toe fracture and necrosis, cannot rule out osteomyelitis 3. Stenosis LLE 4. Uncontrolled diabetes mellitus, A1c 11.9 5. Degenerative spine disease CONDITION [id number] Patient Condition: [id number] Stable HOME CARE INSTRUCTIONS: [id number] Diet Instructions: [id number] Low Fat /Cholesterol [id number] Special Diet: Tomen8c low sugar, low carb diet ACTIVITY: [id number] Activity Restrictions: [id number] No Restrictions FOLLOW UP/APPOINTMENTS Follow-up Plan 1. Follow up with your primary care physician in 1 week. If you do not have one, please make an appointment with Dr. Eduardo Harp to establish care. You dayanara l need someone to follow your lab work after discharge 2. You will need to continue IV antibiotics for at least 4 weeks and up to 6 weeks depending on treatment for your left toe 3. Take Plavix daily due to findings of peripheral vascular disease to help p revent further clotting 4. Take Metformin twice a day with meals for glucose control 5. Take Basaglar 40 units at night and Humalog 15 units with meals (three times a day) 6. You will need to follow up with [facility] for re evaluation of your foot. Your insurance at this time is not taken at the clinic. If you are not able to get new insurance in the next 2 weeks, please go to [facility] for evaluation. 7. If experiencing any concerning symptoms, please go to your nearest emergency department 1. seguimiento con rowe mdico de atencin primaria en 1 semana. Si usted no tiene abilio, por favor pratik adore clau con el Dr. eduardo Harp para establecer la atencin. Usted necesitar a alguien para seguir rowe trabajo de laboratorio despus de la descarga 2. usted tendr que continuar con antibiticos intravenosos silver al menos 4 semanas y hasta 6 semanas dependiendo del tratamiento para el dedo del pie alessia 3. [place] Plavix diariamente debido a los hallazgos de la enfermedad vascular perifrica para ayudar a prevenir adore mayor coagulacin 4. [place] metformina dos veces al da con las comidas para el control de glucosa 5. [place] Basaglar 40 unidades por la noche y Humalog 15 unidades con las comidas (marianna veces al da) 6. tendr que hacer un seguimiento con la clnica de [facility] para reevaluar rowe pie. [place] seguro en emilee momento no se woody en la clnica. Si usted no es capaz de obtener un nuevo seguro en las prximas 2 semanas, por favor vaya a [facility] para la evaluacin. 7. Si experimenta algn sntoma relacionado, por favor vaya a rowe Departamento de emergencias ms cercano REFERRALS Other Referrals Eduardo Harp MD Specialty: Internal Medicine Comments Office Address [address] [place] [address] [place] [address] Office BARB ORDONEZ MD Feb 05, 2019 11:21
--- NOTE | 2019-02-05 13:20 | CONS ---
Assessment/Plan Assessment/Plan Hospital Course (Demo Recall) Alert, feels good Microbiology: Blood and urine cultures since admission negative, wound culture growing coag negative staph species, staph aureus, strep Antimicrobials: Rocephin Physical examination: Well-developed obese elderly man who is alert in no distress. Head atraumatic normocephalic neck is supple. Chest rise symmetrical. Breath sounds clear. Heart: S1-S2. Abdomen soft bowel sounds present. Extremities with left foot dressing intact Assessment: 1. 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 Diabetes 3. Diabetic neuropathy 4. Peripheral arterial disease==> s/p Aortogram, bilateral lower extremity angiograms, angioplasty of the left proximal posterior tibial artery occlusions 02/02/19 Plan: Remains stable, continue on current abx for 4 + more weeks, pt will have another surgical intervention in 2-[address] Perez Consultation Date/Type/Reason Admit Date/Time Jan 29, 2019 at 14:15 Initial Consult Date Type of Consult id Requesting Provider: ALVARO MCCORD Date/Time of Note DATE: 02/05/19 TIME: 13:19 Exam/Review of Systems Exam Vitals Vital Signs Date Temp Pulse Resp B/P (MAP) Pulse Ox O2 O2 Flow FiO2 Time Delivery Rate 02/05/19 98.2 80 18 101/53 100 Room Air 08:11 (69) Intake and Output 02/04/19 02/04/19 02/05/19 1414:59 22:59 06:59 IntakeIntake Total 730 ml 890 ml 710 ml OutputOutput Total 1000 ml 2300 ml BalanceBalance -270 ml 890 ml -1590 ml Results Result Diagram: 02/02/19 0517 02/02/19 0517 Results 24hrs Laboratory Tests Test 02/04/19 17:34 02/04/19 20:32 02/04/19 22:45 02/05/19 01:28 Bedside Glucose 195 262 H 185 170 Test 02/05/19 08:09 02/05/19 12:06 Bedside Glucose 143 146 Medications Medication Current Medications IV Flush (NS 3 ml) 3 ml PER PROTOCOL IV ; Start 01/29/19 at 14:00 Ondansetron HCl (Zofran Inj) 4 mg Q6H PRN IV NAUSEA/VOMITING; Start 01/29/19 at 14:00 Acetaminophen (Tylenol Tab) 650 mg Q6H PRN PO .PAIN 1-3 OR TEMP; Start 01/29/19 at 14:00 Oxycodone/ Acetaminophen (Percocet (5/ 325)) 1 tab Q6H PRN PO .PAINS 4-6 Last administered on 02/05/19at 08:11; Admin Dose 1 TAB; Start 01/29/19 at 14:00 Morphine Sulfate (morphine) 2 mg Q4H PRN IV .PAIN 7-10 Last administered on 02/03/19at 02:23; Admin Dose 2 MG; Start 01/29/19 at 14:00 Sodium Chloride 1,000 ml @ 50 mls/hr Q20H IV Last administered on 02/04/19at 20:47; Admin Dose 50 MLS/HR; Start 01/29/19 at 14:00 Diagnostic Test (Pha) (Accu-Chek) 1 ea 02 XX Last administered on 01/31/19at 0 2:12; Admin Dose 1 EA; Start 01/30/19 at 02:00 Insulin Aspart (Novolog Insulin Pen) NOVOLOG *MILD* ALGORITHM WITH MEALS BEDTIME SC Last administered on 02/05/19 12:09; Admin Dose 1 UNIT; Start 01/18 12/08 at 18:00 Miscellaneous Information 1 ea NOTE XX ; Start 01/29/19 at 15:00 Glucose (Glutose) 15 gm Q15M PRN PO DECREASED GLUCOSE; Start 01/29/19 at 15:00 Glucose (Glutose) 22.5 gm Q15M PRN PO DECREASED GLUCOSE; Start 01/29/19 at 15:00 Dextrose (D50w Syringe) 25 ml Q15M PRN IV DECREASED GLUCOSE; Start 01/29/19 at 15:00 Dextrose (D50w Syringe) 50 ml Q15M PRN IV DECREASED GLUCOSE; Start 01/29/19 at 15:00 Glucagon (Glucagen) 1 mg Q15M PRN IM DECREASED GLUCOSE; Start 01/29/19 at 15:00 Glucose (Glutose) 15 gm Q15M PRN BUCCAL DECREASED GLUCOSE; Start 01/29/19 at 15:00 Sodium Hypochlorite (Dakins Diluted ()) 1 applic DAILY TP Last administered on 02/05/19at 08:19; Admin Dose 1 APPLIC; Start 01/31/19 at 09:00 Ceftriaxone Sodium 50 ml @ 100 mls/hr Q24H IVPB Last administered on 02/04/19 14:33; Admin Dose 100 MLS/HR; Start 02/01/19 at 14:30 Clopidogrel Bisulfate (plaVIX) 75 mg DAILY PO Last administered on 02/05/19 08:11; Admin Dose 75 MG; Start 02/03/19 at 09:00 Insulin Aspart (Novolog Insulin Pen) 15 unit WITH MEALS SC Last administered on 02/05/19 12:08; Admin Dose 15 UNIT; Start 02/02/19 at 17:35 Insulin Glargine (Lantus) 40 units DAILY@2000 SC Last administered on 02/04/19 20:35; Admin Dose 40 UNITS; Start 02/02/19 at 20:00 Metformin HCl (Glucophage) 500 mg BID WITH MEALS PO Last administered on 02/05/19 08:11; Admin Dose 500 MG; Start 02/04/19 at 18:05 IV Flush (NS 10 ml) 10 ml PRN PRN IV FLUSH LINE; Start 02/04/19 at 18:00 FROYLAN VASQUEZ NP Feb 05, 2019 13:20
[2019-02-05] MEDS: CEFTRIAXONE 1 GM/50 ML (PMX) 50 ML IVPB SCH (15:07)
[2019-02-05 15:13] VITALS: BP 108/60; PULSE 82; RESP 18
--- NOTE | 2019-02-05 15:36 | DS ---
Date/Time of Note Date/Time of Note DATE: 02/05/19 TIME: 15:30 Discharge Summary Admission/Discharge Info Admit Date/Time Jan 29, 2019 at 14:15 Discharge Date/Time 02/05/19 Discharge Diagnosis 1. Sepsis secondary toe necrosis left toe- resolved 2. Left toe fracture and necrosis, cannot rule out osteomyelitis 3. Stenosis LLE 4. Uncontrolled diabetes mellitus, A1c 11.9 5. Degenerative spine disease Patient Condition: Stable Consults Infectious disease- Dr. Quarles Podiatry- Dr. Alcaraz Procedures PROCEDURE: XR Chest. CLINICAL INDICATION: Check Line Placement TECHNIQUE: Single view of the chest were obtained. COMPARISON: DR HAGER CHEST 02/04/2019 FINDINGS: Interval advancement of left PICC line, distal tip now projecting over the atriocaval junction. Cardiomediastinal silhouette is normal in size and contour. Faint calcifications of the aortic arch. Low lung volumes. Lungs are clear. Mild degenerative changes of the osseous structures. IMPRESSION: 1. Interval advancement of left PICC line, distal tip projecting over the a triocaval junction. 2. No radiographic evidence of acute cardiopulmonary process. RPTAT: HH Physician Elvin Date Time Electronically viewed and signed by Rupert Harp Physician on 02/04/2019 19:46 Hx of Present Illness Patient is a male with past medical history significant for diabetes of 10 years noncompliant on medications as patient has not ever seen a doctor apparently for many years who presents to [facility] for left toe pain. Patient states approximately 7 days ago he was playing soccer and he injured his toe. Pain and the bleeding got progressively worse and he came to the ER today. Patient states that he has been on and off occasional medications for his diabetes for the past 10 years but has not seen a doctor. Patient currently denies any chest pain, shortness of breath, nausea, vomiting, abdominal pain, headache, bowel or bladder dysfunction. Patient states other than his toe he feels quite normal. Hospital Course Patient was admitted for evaluation by podiatry given findings of broken hallux and necrosis to toe. Infectious disease consulted for antibiotic recommendations. Patient was also found with uncontrolled DM and provided teaching by diabetic education for proper diet, glucose check, and insulin admi nistration. Wound cultures were obtained and based on sensitivities, patient was continued on Rocephin. ID recommended 4-6 weeks of antibiotics and PICC line was placed. CM was consulted to arrange HH for IV antibiotics, wound care, and PICC line care. Per podiatry, patient would be set up for outpatient follow up once obtained better insurance for possible amputation given necrosis of tissue. Patients pain was controlled with PO medications. Glucose was controlled on Metformin, lantus, and novolog. His presenting symptoms improved significantly and on day of discharge patients vitals and physical exam remained stable. Patient was discharged home in stable condition. Home Meds Active Scripts Insulin Lispro (Humalog Kwikpen U-100) 100 Unit/1 Ml Insuln.pen, 15 UNIT SQ WITH MEALS for 30 Days, #16 EA Prov:BARB ORDONEZ MD 02/05/19 [place], Insulin Disposable (Lizeth Pen Needle) 1 Each Dis.needle, EACH ACHS A, #200 Prov:BARB ORDONEZ MD 02/05/19 Insulin Glargine,Hum.rec.anlog (Basaglar Kwikpen U-100) 100 Unit/1 Ml Insuln.pen, 40 UNIT SC QHS for 30 Days, #16 EA Prov:BARB ORDONEZ MD 02/05/19 Metformin* (Glucophage*) 500 Mg Tab, 500 MG PO BID WITH MEALS for 30 Days, #60 TAB 1 Refill Prov:BARB ORDONEZ MD 02/05/19 Clopidogrel Bisulfate (Clopidogrel) 75 Mg Tablet, 75 MG PO DAILY for 30 Days, #30 TAB 1 Refill Prov:BARB ORDONEZ MD 02/05/19 Follow-up Plan 1. Follow up with your primary care physician in 1 week. If you do not have one, please make an appointment with Dr. Eduardo Harp to establish care. You will need someone to follow your lab work after discharge 2. You will need to continue IV antibiotics for at least 4 weeks and up to 6 weeks depending on treatment for your left toe 3. Take Plavix daily due to findings of peripheral vascular disease to help prevent further clotting 4. Take Metformin twice a day with meals for glucose control 5. Take Basaglar 40 units at night and Humalog 15 units with meals (three times a day) 6. You will need to follow up with [facility] for re evaluation of your foot. Your insurance at this time is not taken at the clinic. If you are not able to get new insurance in the next 2 weeks, please go to [facility] for evaluation. 7. If experiencing any concerning symptoms, please go to your nearest emergency department 1. seguimiento con rowe mdico de atencin primaria en 1 semana. Si usted no tiene abilio, por favor pratik adore clau con el Dr. eduardo Harp para establecer la atencin. Usted necesitar a alguien para seguir rowe trabajo de laboratorio despus de la descarga 2. usted tendr que continuar con antibiticos intravenosos silver al menos 4 semanas y hasta 6 semanas dependiendo del tratamiento para el dedo del pie alessia 3. Zeb Plavix diariamente debido a los hallazgos de la enfermedad vascular perifrica para ayudar a prevenir adore mayor coagulacin 4. Zeb metformina dos veces al da con las comidas para el control de glucosa 5. Zeb Basaglar 40 unidades por la noche y Humalog 15 unidades con las comidas (marianna veces al da) 6. tendr que hacer un seguimiento con la clnica de [facility] para reevaluar rowe pie. Rowe seguro en emilee momento no se woody en la clnica. Si usted no es capaz de obtener un nuevo seguro en las prximas 2 semanas, por favor vaya a [facility] para la evaluacin. 7. Si experimenta algn sntoma relacionado, por favor vaya a rowe Departamento de emergencias ms cercano Primary Care Provider Care Physician No Primary Time spent on discharge: > 30 minutes Pending Labs Laboratory Tests Test 02/04/19 17:34 02/04/19 20:32 02/04/19 22:45 02/05/19 01:28 Bedside 195 262 185 170 Glucose mg/dL (70-220) mg/dL (70-220) mg/dL (70-220) mg/dL (70-220) Test 02/05/19 08:09 02/05/19 12:06 Bedside 143 146 Glucose mg/dL (70-220) mg/dL (70-220) BARB ORDONEZ MD Feb 05, 2019 15:36
== END 2019-02-05 17:20 | disposition home or self-care (01) | DRG 854 ==
LOC: E/R 11:45 → SUATTDRO 13:48 → PP2 14:15
PROVIDERS: ADMIT Internal Medicine; ATTEND Internal Medicine
PROC: 02HV33Z Insertion of Infusion Device into Superior Vena Cava, Percutaneous Approach (ICD-10-PCS; 2019-01-29)
PROC: B41DZZZ Fluoroscopy of Aorta and Bilateral Lower Extremity Arteries (ICD-10-PCS; 2019-02-02)
PROC: 047S3ZZ Dilation of Left Posterior Tibial Artery, Percutaneous Approach (ICD-10-PCS; principal; 2019-02-02 11:00)
DX: A41.9 Sepsis, unspecified organism (principal); E11.52 Type 2 diabetes mellitus with diabetic peripheral angiopathy with gangrene; M86.9 Osteomyelitis, unspecified; I70.262 Atherosclerosis of native arteries of extremities with gangrene, left leg; E11.42 Type 2 diabetes mellitus with diabetic polyneuropathy; E11.65 Type 2 diabetes mellitus with hyperglycemia; S92.422B Displaced fracture of distal phalanx of left great toe, initial encounter for open fracture; L03.032 Cellulitis of left toe; M47.9 Spondylosis, unspecified; S92.425B Nondisplaced fracture of distal phalanx of left great toe, initial encounter for open fracture; X58.XXXA Exposure to other specified factors, initial encounter; Y93.66 Activity, soccer; Z79.4 Long term (current) use of insulin; Z91.14 Patient's other noncompliance with medication regimen
CPT/HCPCS: 36415; 36569; 71045; 73718; 75630; 75716; 76937; 80048; 80053; 80061; 80202; 81001; 81003; 82565; 82962; 83036; 83605; 83735; 84100; 84443; 84484; 84520; 85025; 85610; 85651; 85730; 86140; 87070; 87081; 87086; 93005; 93922; 96374; 96375; C1725; C1760; C1769; C1887; C1894; J0696; J1644; J1815; J2250; J2270; J2543; J3010; J3370; J7030; J7050; L3260; Q9967